=== PATIENT | male | born 1985 | race Caucasian/White ===

== ENCOUNTER 2019-04-07 00:06 | Emergency (ER) | payer MEDICAID, SELFPAY ==
[2019-04-07 00:07] VITALS: BP 113/54; PULSE 71; RESP 16; TEMP 36.7; O2SAT 99; BMI 37.4
--- NOTE | 2019-04-07 00:24 | RAD_ITS ---
STUDY: X-RAY CHEST REASON FOR EXAM: Male, 33 years old. Chest pain. TECHNIQUE: PA and lateral chest. COMPARISON: None. FINDINGS: Minimal right middle lobe airspace opacity best visualized on the lateral view. No effusions. Normal size heart. Normal mediastinum and clarissa. Normal visualized pulmonary arteries. Normal visualized aortic arch and descending thoracic aorta. Normal visualized thoracic spine. Normal visualized ribs, clavicles, and shoulders. There is no demonstrated abnormality of the visualized soft tissue structures of the upper abdomen. RAD/Chest PA and Lateral IMPRESSION: Right middle lobe subsegmental atelectasis or less likely pneumonia. Electronically Signed: Anival Garcia MD at 0:55 EDT , Service support ,
--- NOTE | 2019-04-07 00:24 | ED.VIS.CHEST ---
History of Present Illness Chief Complaint: Chest Pain Informant: Patient Onset: Days - 3 Activity at onset: Unknown - Gradual onset, worse throughout the day today Timing: Continuous Quality: Sharp Location: Left Chest Current Severity: Moderate Maximum Severity: Moderate Worsened By: Exertion, Breathing, - - Worse with lying down. Not Worsened By: Movement of Arm, Movement of Torso, Eating, Palpation Relieved By: - - Better with leaning forward while sitting. Tylenol helped a little, has tried nothing else Associated Symptoms: Dyspnea - At one point because the pain was worse, but for the most part no dyspnea. Negative for: Nausea, Vomiting, Diaphoresis, Cough - And no hemoptysis, Fever, Lightheadedness, Palpitations Narrative: No recent illnesses. No recent travel. No near syncopal symptoms or other systemic symptoms. Pain in his left chest radiates into the same area in his upper left back when he takes a deep breath. Prior Similar Symptoms: No Recent Illness/Hospitalization: No CVD Risk Factors: Negative for: Hypertension, Diabetes, Hypercholesterolemia, Family History 1' </=55, Smoking PE Risk Factors: Negative for: Recent Travel/Surgery, Recenet Immobilization, Prior DVT or PE, Cancer, OCP + Smoking + >/=35 Past Medical History - Allergies and Home Meds Allergies/Adverse Reactions: Allergies No Known Allergies Allergy (Verified 04/07/19 00:37) Primary Care Physician: Care Physician,No Primary [Primary Care Provider] - Past Medical History: None Surgical History: no surgical history Lives: Spouse/ Significant Other Smoking Status: Never smoker Drugs: None Review of Systems General: Denies: Chills, Fever, Sweats Eyes: Denies: Visual changes - bilaterally, Diplopia ENT: Denies: Rhinorrhea, Sore throat Cardiovascular: Reports: Chest pain. Denies: Palpitations Respiratory: Denies: Dyspnea, Cough, Dyspnea on exertion Gastrointestinal: Denies: Abdominal pain, Nausea, Vomiting, Diarrhea, Melena, Hematochezia Genitourinary: Denies: Dysuria, Hematuria, Frequency Musculoskeletal: Denies: Back pain, Swelling, Extremity Pain Skin: Denies: Rash, Wounds Neurological: Denies: Headache, Weakness, Numbness Physical Exam Vital Signs/Narrative: Vital Signs Temp Pulse Resp BP Pulse Ox 04/07/19 00:07 98.0 F 71 16 113/54 L 99 Inital Vital Signs reviewed: Yes General: Well nourished, Well developed, No Acute Distress Head: Normocephalic, Atraumatic Eyes: Perrl, EOMI ENT: Moist mucous membranes, No rhinorrhea Neck: Supple, Nontender Cardiovascular: Regular rate, Regular rhythm, No murmurs. Negative for: Tachycardia Respiratory: No distress, CTA bilaterally, Chest nontender Abdomen: Soft, Nontender, Nondistended, Normal bowel sounds Back: Nontender, Normal Inspection Extremities: Nontender, No edema. Negative for: Calf Tenderness Skin: Normal color, No rash, No Trauma Neurological: Alert, Oriented x3, Cranial nerves II-XII grossly intact, Normal Strength, Normal Sensation Psychological: Normal affect, Normal Mood Diagnostic/Tx/Re-eval Impressions Chest X-Ray 04/07/19 00:24 IMPRESSION: Right middle lobe subsegmental atelectasis or less likely pneumonia. Electronically Signed: Anival Garcia MD at 0:55 EDT , Service support , 04/07/19 00:24 Chest PA and Lateral [RAD] Stat Laboratory Results 04/07/19 04/07/19 04/07/19 00:32 00:32 00:32 WBC 8.3 RBC 4.99 Hgb 14.9 Hct 42.4 MCV 85.0 MCH 29.9 MCHC 35.1 RDW 12.8 RDW Differential 39.0 Plt Count 280 MPV 10.7 Immature Gran % (Auto) 0.100 Neut % (Auto) 58.2 Lymph % (Auto) 32.1 Tensas % (Auto) 7.6 Eos % (Auto) 1.8 Baso % (Auto) 0.2 Absolute Neuts (auto) 4.9 Absolute Lymphs (auto) 2.67 Total Counted Not Reportable D-Dimer Quant (PE/DVT) < 0.27 L Sodium 139 Potassium 3.0 L Chloride 103 Carbon Dioxide 30.0 Anion Gap 6 BUN 16 Creatinine 1.05 Estim Creat Clear Calc 88.67 Est GFR (MDRD) Af Amer 106 Est GFR (MDRD) Non-Af 87 BUN/Creatinine Ratio 15.2 Glucose 111 H Calcium 8.6 Troponin I < 0.015 - Rhythm Strip Rhythm Strip: Sinus Rhythm Rate: 80 Ectopy: None - EKG Initial EKG Interpretation: Sinus Rhythm, No Acute Injury Pattern, - - nml axis. no ST elevation or depression. no RI depression. Prior: No Prior - Medical Decision Making JAZMIN risk score is 0. His work-up is negative including a normal EKG, negative troponin, normal blood counts, and a negative d-dimer. With regards to the above x-ray interpretation, there is mild right middle lobe abnormality is likely atelectasis since he has symptoms localized to the left side of his chest and upper back only, and has no symptoms of pneumonia. After Toradol, his symptoms have improved and he was able to rest, his states this is the first time in 3 days he has actually been able to sleep. We woke him up and he is feeling okay. Since his EKG shows no findings of pericarditis, which is at the top of the differential given his symptoms, I suspect this is more likely to be pleurisy. I will prescribe him Naprosyn and refer him for primary care since he has no PCP. wants him to see Dr. Young which is his doctor, which I think is fine. All questions answered at the bedside. ED Disposition - Plan for ED Patient: Disposition: Home or Assisted Living Diagnosis: Pleurisy Instructions: ED Chest Pain Pleurisy Prescriptions: Naproxen [Naprosyn] 500 mg PO BID PRN #20 tablet Referrals: Valeriano Young MD [NON-STAFF] - 3-5 Days if not improving
[2019-04-07] MEDS: Ketorolac 30 MG/ML Syringe IV (00:33)
[2019-04-07 00:41] LABS: Absolute Lymphocyte Count 2.67 X10^3/ul (0.83-4.51); Absolute Neutrophil Count 4.9 X10^3/uL (2.0-7.7); Basophil# 0.02 X10^3/uL; Basophil% 0.2 % (0-1); Eosinophil# 0.15 X10^3/uL; Eosinophils% 1.8 % (0-5); Hematocrit 42.4 % (40-54); Hemoglobin 14.9 g/dl (13.0-16.5); Lymphocyte # 2.67 X10^3/ul (4.0); Lymphocyte % 32.1 % (19-41); Mean Corp Hgb Conc 35.1 g/gl (32-36); Mean Corpuscular Hgb 29.9 pg (27.0-32.0); Mean Platelet Vol. 10.7 fl (6.2-12.0); Monocyte# 0.63 X10^3/uL; Monocyte% 7.6 % (0-10); Neutrophil # 4.85 X10^3/uL (2.7-7.7); Neutrophil % 58.2 % (47-70); Platelet Count 280 K/mm3 (150-450); RBC Distribution Width CV 12.8 % (11.6-14.6); Red Blood Count 4.99 M/mm3 (4.6-6.2); White Blood Count 8.3 K/mm3 (4.4-11.0)
[2019-04-07 00:45] LABS: POSITIVE COUNT NO; POSITIVE DIFFERENTIAL NO; POSITIVE MORPHOLOGY NO
[2019-04-07 00:55] LABS: D-Dimer Quantitative (DVT/PE) < 0.27 FEU/ug/m (0.27-0.49)
[2019-04-07 01:00] LABS: Anion Gap 6 (5-15); BUN 16 mg/dL (7-18); BUN/Creat Ratio 15.2 RATIO (10-20); Calcium,Total 8.6 mg/dL (8.5-10.1); Chloride 103 mmol/L (98-107); Creatinine, Serum 1.05 mg/dL (0.70-1.30); EST Glomerular Filtration Rate 87 mL/min (>60); Est Glom Filt Rate - Afr Amer 106 mL/min (>60); Estimated Creatinine Clearance 88.67 ml/min; Glucose 111 mg/dL (74-106); Sodium Level 139 mmol/L (136-145)
--- NOTE | 2019-04-07 01:34 | EKG12_ITS ---
Test Reason : CP Blood Pressure : / mmHG Vent. Rate : 079 BPM Atrial Rate : 079 BPM P-R Int : 162 ms QRS Dur : 118 ms QT Int : 400 ms P-R-T Axes : 054 023 042 degrees QTc Int : 458 ms Normal sinus rhythm Non-specific intra-ventricular conduction delay Borderline ECG Confirmed by BHARGAVI JAMES ([id number]), associate editor JOSEPH ORTIZ ([id number]) on 04/15/2019 9:29:40 AM Referred By: KRISTA Confirmed By:BHARGAVI JAMES
== END 2019-04-07 01:57 | disposition home or self-care (01) ==
PROVIDERS: Emergency Provider Emergency Medicine
DX: R09.1 Pleurisy (principal)
CPT/HCPCS: 71046; 80048; 84484; 85025; 85379; 93005; 96374; 99284; A4216

== ENCOUNTER 2020-04-08 04:40 | Emergency (ER) | payer MEDICAID, SELFPAY ==
[2020-04-08 04:41] VITALS: BP 160/83; PULSE 87; RESP 16; TEMP 36.5; O2SAT 96; BMI 34.9
--- NOTE | 2020-04-08 05:02 | ED.DCSUM_ITS ---
History of Present Illness Chief Complaint: Abd Pain Informant: Patient Narrative: he stated he has a bulge in his left groin that hurts. Is been there for the last 2 months. Normally he can go back and without problem. Usually does not hurt. Tonight he woke up and he had pain. He came in for further evaluation. He tried Tylenol with no relief. He stated that the hernia that he suspects he has will go back in. He has not tried to push it however. Current severity is moderate. Worsened by nothing. Relieved by nothing. Denies any other medical problems. Past Medical History - Allergies and Home Meds Allergies/Adverse Reactions: Allergies No Known Allergies Allergy (Verified 04/08/20 04:43) Primary Care Physician: Care Physician,No Primary [Primary Care Provider] - Prior records reviewed: Yes Past Medical History: None Surgical History: no surgical history Smoking Status: Never smoker Alcohol: None Drugs: None Review of Systems General: Denies: Chills, Fever, Sweats Eyes: Denies: Visual changes - bilaterally, Diplopia ENT: Denies: Rhinorrhea, Sore throat Cardiovascular: Denies: Chest pain, Palpitations Respiratory: Denies: Dyspnea, Cough, Dyspnea on exertion Gastrointestinal: Reports: - - Left groin pain secondary to hernia. Denies: Abd ominal pain, Nausea, Vomiting, Diarrhea, Melena, Hematochezia Genitourinary: Denies: Dysuria, Hematuria, Frequency Musculoskeletal: Denies: Back pain, Extremity Pain Skin: Denies: Rash, Wounds Neurological: Denies: Headache, Weakness, Numbness Physical Exam Vital Signs/Narrative: Vital Signs Temp Pulse Resp BP Pulse Ox 04/08/20 04:41 97.7 F L 87 16 160/83 H 96 General: Well nourished, Well developed, No Acute Distress Head: Normocephalic, Atraumatic Eyes: Perrl, EOMI ENT: Moist mucous membranes, No rhinorrhea Neck: Supple, Nontender Cardiovascular: Regular rate, Regular rhythm, No murmurs Respiratory: No distress, CTA bilaterally, Chest nontender Abdomen: Soft, Nontender, Nondistended, Normal bowel sounds : - - he has a left-sided inguinal hernia with a incarcerated hernia bulge there is no redness or skin discoloration Back: Nontender, Normal Inspection Extremities: Nontender, No edema Skin: Normal color, No rash Neurological: Alert, Oriented x3, Cranial nerves II-XII grossly intact, Normal Strength, Normal Sensation Psychological: Normal affect, Normal Mood Diagnostic/Tx/Re-eval - Medical Decision Making Patient given a dose of Dilaudid for pain. Ice applied. Manual traction applied to try to reduce the hernia. The hernia reduced easily. Patient felt much better. He will follow-up with surgery as an outpatient. Taught how to reduce his hernia if it pops out. Will return if he cannot reduce it ED Disposition - Plan for ED Patient: Disposition: Home or Assisted Living Diagnosis: Incarcerated inguinal hernia Instructions: ED Hernia Inguinal Referrals: Imer More MD [STAFF PHYSICIAN] -
[2020-04-08] MEDS: HYDROmorphone 1 MG/ML Syringe IV (05:06)
[2020-04-08 05:28] VITALS: BP 150/80; PULSE 78; RESP 16; O2SAT 99
--- OUTSIDE RECORDS SUMMARY | 2020-08-29 16:22 | XMS RPT_ITS | CCD ---
:1985 External Reference #:[id number] Author Organization [facility] Care Team Providers Name Role Phone Unavailable Unavailable Unavailable Results Result Name Value Range Unit Interpretation Flag Date Location xr chest 2v frontal/lat on 2019-05-29 XR CHEST 2V * * *Final Report* * * Normal 05-29 [facility] FRONTAL/LAT DATE OF EXAM: May 29 2019 10:40AM [place] WOX [id number] - XR CHEST 2V FRONTAL/LAT / ([id number]) PROCEDURE REASON: Night sweats * * * * Physician Interpretation * * * * EXAMINATION: CHEST RADIOGRAPH (2 VIEW FRONTAL and LATERAL) CLINICAL HISTORY: Night sweats MQ: XC2_5 Comparison: None RESULT: Heart normal size. Bony structures unremarkable. Poor inspir ation producing crowded lung markings.. IMPRESSION: No acute radiographic abnormality. Dot Net Architect: MICHAEL Transcribe Date/Time: May 30 2019 9:52P Dictated by : SHANICE THOMPSON DO This examination was interpreted and the report reviewed and electronically signed by: SHANICE THOMPSON DO on May 30 2019 9:53PM EST [id number] tsh on 2019-05-29 TSH Qn 1.350 0.400-5.500 uU/mL Normal 05-29-2019 [facility] ([id number]) Comment: Performed By: #### CMP, HIV1 2C, CBCDIF, LIPNF, TSH, HBA1C #### [facility] [address] [place], [place] [address] progress on 2019-05 PROGRESS HNO ID: [id number] Normal 05-29-2019 [facility] Author: Izabel Junior (Rt) Tai Meyer [place] ([id number]) Service: ? Author Type: Customer Technical Services Manager Type: Progress Notes Filed: 05/29/2019 10:40 AM Note Text: Radiology Service Progress Note PATIENT NAME: Luis E Thompson DATE OF SERVICE: May 29, 2019 TIME: 10:34 AM PATIENT IDENTITY VERIFICATION COMPLETED USING TWO (2) METHOD S: Patient confirmed name verbally and Date of . PATIENT GENDER DATA: Male PATIENT RELEVANT IMPLANT DATA REVIEWED: Not Applicable RADIOLOGY DEPARTMENT: General X-ray: Exam(s) Completed: Ches t X-Ray PERIPHERAL IV DATA: Not applicable SIGNED BY: RT Sonia May 29, 2019 10:34 AM PROGRESS HNO ID: [id number] Normal 05-29-2019 [facility] Author: Margie Gutierrez () Hector Nicolas ([id number]) Service: ? Author Type: Physician Type: Progress Notes Filed: 05/29/2019 10:14 AM Note Text: Chief Complaint Patient presents with: Physical HPI Luis E Thompson is a 33 year old male who presents here today for establish care visit and annual physical. Has not had PCP since he was a child. Accompanied today by and son. Complaining today of rash on buttocks bilaterally for about 2 years. Patient denies burning, itching, pain, drainage, fever, chil ls. Not treating with anything OTC for symptoms. Has similar rash on left hand as well. Seen last month at [facility] ED for chest pain. Diagnosed with ple urisy. Followed up with Paola Duckworth and switched from naproxen to p rednisone. Symptoms now resolved. Reviewed recent labs. Hypokalemic at 3 without treatment and hyperglycemia 111. Weight in obesity range. Admits to drinking [address] Cyn wahl every 3-4 days. Avoids fast food. Eats mostly home cooked meals wi th lean proteins sometimes. Does not eat vegetables. Does not exerci se regularly. Last tetanus booster was 3 years ago at [facility] when he caug ht left hand with chainsaw. Past medical history, appointments, medications, allergies r cholowed. Previous Medical History PAST MEDICAL HISTORY Diagnosis Date - Obesity (BMI 30.0-34.9) - Pleurisy Previous Surgical History PAST SURGICAL HISTORY Procedure Laterality Date - APPENDECTOMY 2007 [facility] Family History No family history on file. Patient Allergies ALLERGIES No Known Allergies Current Medications Current Outpatient Medications on File Prior to Visit: naproxen (NAPROSYN) 500 mg tablet Take 500 mg by mouth twice daily with meals. No current facility-administered medications on file prior t o visit. Social History Social History Socioeconomic History Marital status: Spouse name: Not on file Number of children: Not on file Years of education: Not on file Highest education level: Not on file Social Needs Financial resource strain: Not on file Food insecurity - worry: Not on file Food insecurity - inability: Not on file Transportation needs - medical: Not on file Transportation needs - non-medical: Not on file Occupational History Occupation: [employer] Employer: [employer] Tobacco Use Smoking status: Never Smoker Smokeless tobacco: Never Used Substance and Sexual Activity Alcohol use: No Drug use: No Sexual activity: Not on file Other Topics Concerns: Not on file Social History Narrative Lives at home with and 4 children Review of Symptoms REVIEW OF SYSTEMS GENERAL: No weight loss, malaise or fevers. Admits to night sweats for years. Has not checked temperature with sweats. HEENT: Negative for frequent or significant headaches, No ch anges in hearing or vision, no nose bleeds or other nasal problems NECK: Negative for lumps, goiter, pain and significant neck swelling RESPIRATORY: Cough; dry. Denies SOB or wheezing, chest conge stion. CARDIOVASCULAR: See HPI GI: No nausea, vomiting, or diarrhea : No history of dysuria, frequency or incontinence, No dif ficulty urinating, nocturia > 1 time per night or hematuria MUSCULOSKELETAL: Negative for joint pain or swelling, back p ain or muscle pain SKIN: See HPI PSYCH: Negative for sleep disturbance, mood disorder and rec ent psychosocial stressors EXAM: BP 100/60 (BP Site: Left Arm, BP Position: Sitting, BP Cuff Size: Large Adult) Pulse 64 Resp 18 Ht 171.5 cm (5' 7.5) Wt 98. 9 kg (218 lb 1.9 oz) BMI 33.66 kg/m? General Appearance: Well appearing, alert, in no acute distr ess, well-hydrated, well nourished.. Skin: eczematous rash on buttocks bilaterally with flaking m aculopapular rash. No perianal rash. . Head: Normocephalic, no masses, lesions, tenderness or abnor malities. Eyes: Anicteric sclera. Pupils are equally round and reactiv e to light. Extraocular movements are intact. . Ears: External ears normal, canals clear. Oropharynx: Lips, mucosa, and tongue normal, teeth and gums normal, oropharynx normal. Neck: Supple, no adenopathy; thyroid symmetric, normal size, no bruits. Lungs: lungs clear to auscultation. No wheezing, rhonchi, ra les. Heart: RRR without murmur, gallop, or rubs. No ectopy. Abdomen: Normal abdominal exam, Abdomen soft, non-tender. Fadi wel sounds normal. No masses, organomegaly. Extremities: No deformities, edema, skin discoloration, club arleth or cyanosis. Good capillary refill. . Health Maintenance List DTAP,TDAP,TD(1 - Tdap) due on 2006 INFLUENZA(1) due on 07/18/2019 ASSESSMENT/PLAN: 1. Annual physical exam - ICD9: V70.0, ICD10: Z00.00 (primar y diagnosis) - Recommended regular aerobic exercise. - Discussed need and benefit for weight loss. BMI 33.66 kg/( m2) - Check fasting lipid panel - Follow up for annual exam in one year. - LIPID PANEL, NONFASTING 2. Night sweats - ICD9: 780.8, ICD10: R61 Present for years. Room air conditioned. Happens when he sle eps in other locations as well. Discussed initiating workup with labs and CXR as ordered. If negative, consider blood cultures vs referral fo r further evaluation. - CBC + DIFF - TSH BLD - HIV 1 2 COMBO(AG/AB),WITH REFLEX TO DIFFERENTIATION - XR CHEST 2V FRONTAL/LAT 3. Hypokalemia - ICD9: 276.8, ICD10: E87.6 Recheck CMP. Will supplement if low. - COMP METABOLIC PANEL 4. Hyperglycemia - ICD9: 790.29, ICD10: R73.9 Screen for DM. Given booklet on meal planning for diabetes t o help with weight loss. Stop drinking pop. Increase vegetable content i n diet. - COMP METABOLIC PANEL - HGB A1C 5. Eczema, unspecified type - ICD9: 692.9, ICD10: L30.9 - Topical steriod tx with Rx for steriod cream/ointment- see orders - discussed skin care of rash - follow up if symptoms persist or worsen. - TRIAMCINOLONE ACETONIDE 0.1 % TOPICAL CREAM 6. Obesity, Class I, BMI 30-34.9 - ICD9: 278.00, ICD10: E66. 9 Improved diet and exercise. Margie Young MD lipid panel, nonfast on 2019-05-29 Cholesterol [Mass/Vol] 147 <200 mg/dL Normal 019 [facility] ([id number]) Comment: Result Comment: <200 mg/dL, Desirable 200-239 mg/dL, Borderline hi gh >239 mg/dL, High Performed By: #### CMP, HIV1 2C, CBCDIF, LIPNF, TSH, HBA1C #### [facility] [address] [place], [place] [address] Cholesterol in 1.74 <2.54 mg/dL Normal 05-29-2019 [facility] LDL/Cholesterol in HDL [Mass [place] ([id number]) ratio] Comment: Result Comment: Reference: 1. National Cholesterol Educ ation Program ATP III Guideline At-A-Glance Quick Desk Reference: National Heart, Lung, and Blood Holliday. National Institutes of Health. 2001: NIH Publication No. 01-3305. 2. An International Atherosc lerosis Society position paper: global recommendations for the management of dyslipidemia: executive summary, Atherosclerosis. 2014: 232(2):410-413. Performed By: #### CMP, HIV1 2C, CBCDIF, LIPNF, TSH, HBA1C #### [facility] [address] [place], [place] [address] Cholesterol.total/Cholesterol in 3.42 <5.10 mg/dL Normal 05-29-2019 [place] HDL [Mass ratio] Cli josephine [place] ([id number]) Comment: Performed By: #### CMP, HIV1 2C, CBCDIF, LIPNF, TSH, HBA1C #### [facility] [address] [place], [place] [address] HDL Cholesterol, NF 43 >39 mg/dL Normal 05-29-2019 [facility] ([id number]) Comment: Result Comment: 40-59 mg/dL, Acceptable >59 mg/dL, High: Negative ri sk factor for coronary heart disease <40 mg/dL, Low: Positive ris k factor for coronary heart disease Performed By: #### CMP, HIV1 2C, CBCDIF, LIPNF, TSH, HBA1C #### [facility] [address] [place] [address] LDL Cholesterol, NF 75 <100 mg/dL Normal 05-29-2019 [facility] ([id number]) Comment: Result Comment: <100 mg/dL, Optimal 100-129 mg/dL, Near optimal/ above optimal 130-159 mg/dL, Borderline hi gh 160-189 mg/dL, High >189 mg/dL, Very high Secondary prevention optimal LDL Cholesterol levels are recommended to be < 70 mg/dL Performed By: #### CMP, HIV1 2C, CBCDIF, LIPNF, TSH, HBA1C #### [facility] [address] [place] [address] Non HDL Chol, NF 104 <130 mg/dL Normal 05-29-2019 [facility] ([id number]) Comment: Result Comment: <130 mg/dL, Optimal 130-159 mg/dL, Near optimal/ above optimal 160-189 mg/dL, Borderline hi gh 190-219 mg/dL, High >219 mg/dL, Very high Secondary prevention optimal non HDL Cholesterol levels are recommended to be < 100 mg/dL Performed By: #### CMP, HIV1 2C, CBCDIF, LIPNF, TSH, HBA1C #### [facility] [address] [place] [address] Triglycerides, NF 146 <150 mg/dL Normal 05-29-2019 [facility] ([id number]) Comment: Result Comment: <150 mg/dL, Normal 150-199 mg/dL, Borderline hi gh 200-499 mg/dL, High >499 mg/dL, Very high Performed By: #### CMP, HIV1 2C, CBCDIF, LIPNF, TSH, HBA1C #### [facility] [address] [place] [address] VLDL Cholesterol, NF 29 <30 mg/dL Normal 9 [facility] ([id number]) Comment: Performed By: #### CMP, HIV1 2C, CBCDIF, LIPNF, TSH, HBA1C #### [facility] [address] [place] [address] [id number] ag +[id number] ab on 2019-05-29 HIV 12 Ag/Ab Non Reactive Non Reactive Normal 05-29-2019 [facility] ([id number]) Comment: Performed By: #### CMP, HIV1 2C, CBCDIF, LIPNF, TSH, HBA1C #### [facility] [place] [address] HIV Interpretation Negative Normal 05-29-2019 [facility] ([id number]) Comment: Result Comment: No evidence of HIV-1 or HIV-2 infection. Should recent infection be suspected, repeat testing may be considered 2-3 weeks after this draw. HIV Information: [place] Rev. C ode 3701.243(E): This information has been di sclosed to you from confidential records protected from disclosure by state law. You shall make no further disclosure of this information without the specific, written, and i nformed release of the indiv idual to whom it pertains or as otherwise permitted by state law. A general authorization for the release of medical or other information is not sufficient for the purpose of the release of HIV test results or diagnoses. Performed By: #### CMP, HIV1 2C, CBCDIF, LIPNF, TSH, HBA1C #### [facility] [place] [address] HIV-1/2 Antibody Test Not Indicated Normal 05-17 [facility] ([id number]) Comment: Performed By: #### CMP, HIV1 2C, CBCDIF, LIPNF, TSH, HBA1C #### [place] [id number] [place] [id number] hemoglobin a1c on 2 HbA1c (Bld) [Mass fraction] 88 mg/dL Normal [facility] (34704) Comment: Result Comment: eAG: (Estima dipika average glucose) is a calculated value from HgbA1c and is field representatives director of the average blood glucose level in the last 2-3 month period. Performed By: #### CMP, HIV1 2C, CBCDIF, LIPNF, TSH, HBA1C ####[facility] [id number] [place], [place] [phone] HbA1c (Bld) [Mass fraction] 4.7 4.3-5.6 % Normal [facility] (86076) Comment: Result Comment: [place] Karen betes Association guidelines indicate that patients with HgbA1c in the range 5.7-6.4% are at increased risk for development of diabetes, and intervention by lifestyle modification may be beneficial. HgbA1c greater o r equal to 6.5% is considered diagnostic of diabetes. Performed By: #### CMP, HIV1 2C, CBCDIF, LIPNF, TSH, HBA1C ####[facility] [place], [place] [phone] comp metabolic panel on 2019-05-29 Albumin [Mass/Vol] 4.7 3.9-4.9 g/dL Normal 05-29-2019 [facility] ([id number]) Comment: Performed By: #### CMP, HIV1 2C, CBCDIF, LIPNF, TSH, HBA1C #### [facility] [address] [place], [place] [address] ALP [Catalytic activity/Vol] 58 38-113 U/L Normal 0 05-29-2019 [facility] ([id number]) Comment: Performed By: #### CMP, HIV1 2C, CBCDIF, LIPNF, TSH, HBA1C #### [facility] [address] [place], [place] [address] ALT [Catalytic activity/Vol] 21 10-54 U/L Normal 0 05-29-2019 [facility] ([id number]) Comment: Performed By: #### CMP, HIV1 2C, CBCDIF, LIPNF, TSH, HBA1C #### [facility] [address] [place], [place] [address] Anion gap [Moles/Vol] 9 9-18 mmol/L Normal 05-29-20 19 [facility] ([id number]) Comment: Performed By: #### CMP, HIV1 2C, CBCDIF, LIPNF, TSH, HBA1C #### [facility] [address] [place], [place] [address] AST [Catalytic activity/Vol] 32 14-40 U/L Normal 0 05-29-2019 [facility] ([id number]) Comment: Result Comment: Results may be falsely increased due to interference by hemolysis. Suggest reorder a s clinically indicated. Performed By: #### CMP, HIV1 2C, CBCDIF, LIPNF, TSH, HBA1C #### [facility] [address] [place], [place] [address] Bilirubin [Mass/Vol] 0.5 0.2-1.3 mg/dL Normal 9 [facility] ([id number]) Comment: Performed By: #### CMP, HIV1 2C, CBCDIF, LIPNF, TSH, HBA1C #### [facility] [address] [place], [place] [address] Calcium [Mass/Vol] 9.9 8.5-10.2 mg/dL Normal 05-29-2019 [facility] ([id number]) Comment: Performed By: #### CMP, HIV1 2C, CBCDIF, LIPNF, TSH, HBA1C #### [facility] [address] [place], [place] [address] Chloride [Moles/Vol] 103 97-105 mmol/L Normal 9 [facility] ([id number]) Comment: Performed By: #### CMP, HIV1 2C, CBCDIF, LIPNF, TSH, HBA1C #### [facility] [address] [place], [place] [address] CO2 [Moles/Vol] 27 22-30 mmol/L Normal 05-29-2019 [facility] ([id number]) Comment: Performed By: #### CMP, HIV1 2C, CBCDIF, LIPNF, TSH, HBA1C #### [facility] [address] [place], [place] [id number] Creatinine [Mass/Vol] 0.86 0.73-1.22 mg/dL Normal 05-29-20 19 [facility] ([id number]) Comment: Performed By: #### CMP, HIV1 2C, CBCDIF, LIPNF, TSH, HBA1C #### [facility] [address] [place] [address] eGFR- Amer. >60 Normal 05-29-2019 [facility] ([id number]) Comment: Performed By: #### CMP, HIV1 2C, CBCDIF, LIPNF, TSH, HBA1C #### [facility] [address] [place] [address] GFR/1.73 sq M predicted >60 mL/min/{1.73_m2} Normal 05-29-2019 [facility] among non-blacks [facility] ([id number]) (S/P/Bld) [Vol rate/Area] Comment: Result Comment: eGFR (Estima dipika GFR) Units of measure: mL/min/1.73 meters squared eGFR is derived from the ree xpressed MDRD Study equation using the following parameters: serum creatinine, age, gender and race. The creatinine assay has been calibrated to be traceable to IDMS. An eGFR <60 mL/min/1.73m2 fo r >3 months is consistent with chronic kidney disease. Refer to KDOQI guidelines for clinical interpretation. In patients with unstable re nal function, e.g. those with acute kidney injury, the eGFR may not accurately reflect actual GFR. Performed By: #### CMP, HIV1 2C, CBCDIF, LIPNF, TSH, HBA1C #### [facility] [address] [place] [id number] Glucose [Mass/Vol] 89 74-99 mg/dL Normal 05-29-2019 [facility] ([id number]) Comment: Result Comment: The [place] Diabetes Association (ADA) provides guidance for cutoff values for fasting glucose and random glucose. The ADA defines fasting as no caloric intake for at least 8 hours. Fas ting plasma glucose results between 100 to 125 mg/dL indicate increased risk for diabetes (prediabetes). Fasting plasma glucose resul ts greater than or equal to 126 mg/dL meet the criteria for diagnosis of diabetes. In the absence of unequivocal hyperglycemia, results should be confirmed by repeat testing. In a patient with classic s ymptoms of hyperglycemia or hyperglycemic crisis, random plasma glucose results greater than or equal to 200 mg/dL meet the criteria for diagnosis of diabetes. Reference: Standards of [facility] Care in Diabetes 2016, [place] Diabetes Association. Diabetes Care. 2016.39(Suppl 1). Performed By: #### CMP, HIV1 2C, CBCDIF, LIPNF, TSH, HBA1C #### [facility] [address] [place], [place] [address] Potassium [Moles/Vol] 4.4 3.7-5.1 mmol/L Normal 05-29-20 [facility] (90725) Comment: Performed By: #### CMP, HIV1 2C, CBCDIF, LIPNF, TSH, HBA1C #### [facility] [address] [place], [place] [address] Protein [Mass/Vol] 7.3 6.3-8.0 g/dL Normal 05-29-2019 [facility] ([id number]) Comment: Performed By: #### CMP, HIV1 2C, CBCDIF, LIPNF, TSH, HBA1C #### [facility] [address] [place], [place] [address] Sodium [Moles/Vol] 139 136-144 mmol/L Normal 05-29-2019 [facility] (31804) Comment: Performed By: #### CMP, HIV1 2C, CBCDIF, LIPNF, TSH, HBA1C #### [facility] [address] [place], [place] [address] Urea nitrogen [Mass/Vol] 13 9-24 mg/dL Normal 05-29 [facility] ([id number]) Comment: Performed By: #### CMP, HIV1 2C, CBCDIF, LIPNF, TSH, HBA1C #### [facility] [address] [place], [place] [address] cnov on 2019-05-29 CNOV Office Visit (FAMPWS) Normal 05-29-20 [facility] LUIS E THOMPSON ([id number]) 1985 M [place] Date Time Provider Department ([id number]) 05/29/19 9:20 AM MARGIE YOUNG[facility] During your visit today, we recorded the following informati on about you: Pulse Respiration Blood pressure Weight 64/minute 18/minute 100/60 98.9 kg Height 1.715 m Margie Young MD 05/29/2019 10:14 AM Signed Chief Complaint Patient presents with: Physical HPI Luis E Thompson is a 33 year old male who presents here today for establish care visit and annual physical. Has not had PCP since he wa s a child. Accompanied today by and son. Complaining today of rash on buttocks bilaterally for about 2 years. Patient denies burning, itching, pain, drainage, fever, chills. Not treating with anything OTC for symptoms. Has similar rash on left hand as well. Seen last month at [facility] ED for chest pain . Diagnosed with pleurisy. Followed up with Paola Duckworth and switched from naproxen to prednisone. S ymptoms now resolved. Reviewed recent labs. Hypokalemic at 3 without zayda atment and hyperglycemia 111. Weight in obesity range. Admits to drinking [address] Gerardo every 3-4 days. Avoids fast food. Eats mostly home cooked meals with l larisa proteins sometimes. Does not eat vegetables. Does not exercise regula rly. Last tetanus booster was 3 years ago at [facility] when he caught left hand with chainsaw. Past medical history, appointments, medications, allergies latonia harding. Previous Medical History PAST MEDICAL HISTORY Diagnosis Date - Obesity (BMI 30.0-34.9) - Pleurisy Previous Surgical History PAST SURGICAL HISTORY Procedure Laterality Date - APPENDECTOMY 2007 [facility] Family History No family history on file. Patient Allergies ALLERGIES No Known Allergies Current Medications Current Outpatient Medications on File Prior to Visit: naproxen (NAPROSYN) 500 mg tablet Take 5 00 mg by mouth twice daily with meals. No current facility-administered medications on file prior t o visit. 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 Admi ts to night sweats for years. Has not checked temperature with sweats. HEENT: Negative for frequent or significant headaches, No changes in hearing or vision, no nose bleeds or other nasal problems NECK: Negative for lumps, goiter, pain and significant neck swelling RESPIRATORY: Cough; dry. Denies SOB or wheezing, chest conge stion. CARDIOVASCULAR: See HPI GI: No nausea, vomiting, or diarrhea : No history of dysuria, frequency or incontinence, No difficulty urinating, nocturia > 1 time per night or hematuria MUSCULOSKELETAL: Negative for joint pain or swelling, back pain or muscle pain SKIN: See HPI PSYCH: Negative for sleep disturbance, mood disorder a nd recent psychosocial stressors EXAM: BP 100/60 (BP Site: Left Arm, BP Positio n: Sitting, BP Cuff Size: Large Adult) Pulse 64 Resp 18 Ht 171.5 cm (5' 7.5) Wt 98.9 kg (218 lb 1.9 oz) BMI 33.66 kg/m? General Appearance: Well mika earing, alert, in no acute distress, well-hydrated, well nourished.. Skin: eczematous rash on buttocks bilate rally with flaking maculopapular rash. No perianal rash. . Head: Normocephalic, no masses, lesions, tenderness or abnor malities. Eyes: Anicteric sclera. Pupils are equally round and reactiv e to light. Extraocular movements are intact. . Ears: External ears normal, canals clear. Oropharynx: Lips, mucosa, and tongue nor mal, teeth and gums normal, oropharynx normal. Neck: Supple, no adenopathy; thyroid symmetric, normal size, no bruits. Lungs: lungs clear to auscultation. No wheezing, rhonchi, ra les. Heart: RRR without murmur, gallop, or rubs. No ectopy. Abdomen: Normal abdominal exam, Abdomen soft, non-tender. Bowel sounds normal. No masses, organomegaly. Extremities: No deformities, edema, skin discolo ration, clubbing or cyanosis. Good capillary refill. . Health Maintenance List DTAP,TDAP,TD(1 - Tdap) due on 2006 INFLUENZA(1) due on 07/18/2019 ASSESSMENT/PLAN: 1. Annual physical exam - ICD9: V70.0, ICD10: Z00.00 (primar y diagnosis) - Recommended regular aerobic exercise. - Discussed need and benefit for weight loss. BMI 33.66 kg/( m2) - Check fasting lipid panel - Follow up for annual exam in one year. - LIPID PANEL, NONFASTING 2. Night sweats - ICD9: 780.8, ICD10: R61 Present for years. Room air conditioned. Happens when he sle eps in other locations as well. Discussed initiating workup with labs and CXR as ordered. If negative, consider blood cultures vs referral for further ev aluation. - CBC + DIFF - TSH BLD - HIV 1 2 COMBO(AG/AB),WITH REFLEX TO DIFFERENTIATION - XR CHEST 2V FRONTAL/LAT 3. Hypokalemia - ICD9: 276.8, ICD10: E87.6 Recheck CMP. Will supplement if low. - COMP METABOLIC PANEL 4. Hyperglycemia - ICD9: 790.29, ICD10: R73.9 Screen for DM. Given booklet on meal jacob nning for diabetes to help with weight loss. Stop drinking pop. Increase vegetable content in diet. - COMP METABOLIC PANEL - HGB A1C 5. Eczema, unspecified type - ICD9: 692.9, ICD10: L30.9 - Topical steriod tx with Rx for steriod cream/ointment- see orders - discussed skin care of rash - follow up if symptoms persist or worsen. - TRIAMCINOLONE ACETONIDE 0.1 % TOPICAL CREAM 6. Obesity, Class I, BMI 30-34.9 - ICD9: 278.00, ICD10: E66. 9 Improved diet and exercise. Margie Young MD Referring Provider: SELF [[id number]] Allergies As of Date: 05/29/2019 (No Known Allergies) Date Reviewed: 05/29/2019 Reviewed by: Margie Gutierrez () Hector - Fully Assessed Reason for Visit: Physical [83] Primary Visit Diagnosis:Annual physical exam [Z00.00] Other Visit Diagnoses:Night sweats [R61] Hypokalemia [E87.6] Hyperglycemia [R73.9] Eczema, unspecified type [L30.9] Obesity, Class I, BMI 30-34.9 [E66.9] Pleurisy [R09.1] Obesity (BMI 30.0-34.9) [E66.9] Order(s):COMP METABOLIC PANEL [SQCMP] Order #: [id number] FU TURE triamcinolone acetonide (KENALOG) 0.1 % creamApply 1 applica tion to affected area twice daily. Apply sparingly to area for rash/itching.Disp: 1 TubeRfl: 1 HGB A1C [GLIYS7U] Order #: [id number] FUTURE CBC + DIFF [SQCBCDIF] Order #: [id number] FUTURE TSH BLD [SQTSH] Order #: [id number] FUTURE HIV 1 2 COMBO(AG/AB),WITH REFLEX TO DIFFERENTIATION [SQHIV12 ] Order #: [id number] FUTURE XR CHEST 2V FRONTAL/LAT [[id number]] Order #: [id number] FUTURE LIPID PANEL, NONFASTING [SQLIPNF] Order #: [id number] FUTURE Prescriptions as of 05/29/2019 Sig: TRIAMCINOLONE ACETONIDE 0.1 %* Apply 1 application to affect * Problem List As Of Date 05/29/2019 Noted Resolved Contact with chainsaw as cause of accidental in*INVALID FOR* Laceration of left hand [S61.412A] INVALID FOR* Eczema [L30.9] Night sweats [R61] Pleurisy [R09.1] 05/29/2019 Obesity (BMI 30.0-34.9) [E66.9] Prescriptions ordered this encounter Disp Refills Start End TRIAMCINOLONE ACETONIDE 0.1 % TOPICA* 1 Tu* 1 05/29/2019 Route: TOPICAL Sig: Apply 1 application to affected area twice daily. Apply sparingly to area for rash/itching. Medications Discontinued During This Encounter naproxen (NAPROSYN) 500 mg tablet 05/29/2019 Class: Historical Med Route: ORAL Sig: Take 500 mg by mouth twice daily with meals. Disc: Reason for discontinue is not on file. Disposition: Return if symptoms worsen or fail to improve. Follow-up and Disposition History Recorded Encounter Status:Closed by MARGIE YOUNG MD on 9 cbc and differential on 2019-05-29 Abs Baso 0.04 <0.11 k/uL Normal 05-29-2019 [facility] ([id number]) Comment: Performed By: #### CMP, HIV1 2C, CBCDIF, LIPNF, TSH, HBA1C #### [facility] [address] [address] Abs Tama 0.52 <0.87 k/uL Normal 05-29-2019 [facility] ([id number]) Comment: Performed By: #### CMP, HIV1 2C, CBCDIF, LIPNF, TSH, HBA1C #### [facility] [address] [place] [address] Abs Neut 4.24 1.45-7.50 k/uL Normal 05-29-2019 [facility] ([id number]) Comment: Performed By: #### CMP, HIV1 2C, CBCDIF, LIPNF, TSH, HBA1C #### [facility] [address] [address] Absolute nRBC <0.01 <0.01 Normal 05-29-2019 [facility] ([id number]) Comment: Performed By: #### CMP, HIV1 2C, CBCDIF, LIPNF, TSH, HBA1C #### [facility] [address] [place] [address] Basophils/100 WBC (Bld) 0.6 % Normal 2018 [facility] ([id number]) Comment: Performed By: #### CMP, HIV1 2C, CBCDIF, LIPNF, TSH, HBA1C #### [facility] [address] [address] DTYPE Auto Diff Normal 05-29-2019 [facility] ([id number]) Comment: Performed By: #### CMP, HIV1 2C, CBCDIF, LIPNF, TSH, HBA1C #### [facility] [address] [address] Eosinophils (Bld) [#/Vol] 0.07 <0.46 k/uL Normal 05-17 [facility] ([id number]) Comment: Performed By: #### CMP, HIV1 2C, CBCDIF, LIPNF, TSH, HBA1C #### [facility] [address] [address] Eosinophils/100 WBC (Bld) 1.1 % Normal 05-17 [facility] ([id number]) Comment: Performed By: #### CMP, HIV1 2C, CBCDIF, LIPNF, TSH, HBA1C #### [facility] [address] [address] Erythrocyte distribution 12.5 11.5-15.0 % Normal 05-29 [facility] width (RBC) [Ratio] [facility] ([id number]) Comment: Performed By: #### CMP, HIV1 2C, CBCDIF, LIPNF, TSH, HBA1C #### [facility] [address] [place], [place] [address] Hematocrit (Bld) [Volume 48.1 39.0-51.0 % Normal 05-29 [facility] fraction] [facility] ([id number]) Comment: Performed By: #### CMP, HIV1 2C, CBCDIF, LIPNF, TSH, HBA1C #### [facility] [address] [place], [place] [address] Hemoglobin (Bld) 15.7 13.0-17.0 g/dL Normal 05-29-2019 [facility] [Mass/Vol] [place] ([id number]) Comment: Performed By: #### CMP, HIV1 2C, CBCDIF, LIPNF, TSH, HBA1C #### [facility] [address] [place], [place] [address] Lymphocytes (Bld) [#/Vol] 1.69 1.00-4.00 k/uL Normal 05-17 [facility] ([id number]) Comment: Performed By: #### CMP, HIV1 2C, CBCDIF, LIPNF, TSH, HBA1C #### [facility] [address] [address] Lymphocytes/100 WBC (Bld) 25.8 % Normal 05-17 [facility] ([id number]) Comment: Performed By: #### CMP, HIV1 2C, CBCDIF, LIPNF, TSH, HBA1C #### [address] [address] MCH (RBC) [Entitic mass] 29.1 26.0-34.0 pG Normal 05-29 [facility] ([id number]) Comment: Performed By: #### CMP, HIV1 2C, CBCDIF, LIPNF, TSH, HBA1C #### [facility] [address] [place], [place] [address] MCHC (RBC) [Mass/Vol] 32.6 30.5-36.0 g/dL Normal 05-29-20 [facility] ([id number]) Comment: Performed By: #### CMP, HIV1 2C, CBCDIF, LIPNF, TSH, HBA1C #### [facility] [address] [place] [address] MCV (RBC) [Entitic vol] 89.1 80.0-100.0 fL Normal 05-29 [facility] ([id number]) Comment: Performed By: #### CMP, HIV1 2C, CBCDIF, LIPNF, TSH, HBA1C #### [facility] [address] [place], [place] [address] Monocytes/100 WBC (Bld) 7.9 % Normal 2018 [facility] ([id number]) Comment: Performed By: #### CMP, HIV1 2C, CBCDIF, LIPNF, TSH, HBA1C #### [facility] [address] [place], [place] [address] Neutrophils/100 WBC (Bld) 64.6 % Normal 05-17 [facility] ([id number]) Comment: Performed By: #### CMP, HIV1 2C, CBCDIF, LIPNF, TSH, HBA1C #### [facility] [address] [place], [place] [address] NRBCs 0.0 0 /100 WBC Normal 05-29-2019 [facility] ([id number]) Comment: Performed By: #### CMP, HIV1 2C, CBCDIF, LIPNF, TSH, HBA1C #### [facility] [address] [place], [place] [id number] Platelet mean volume 11.5 9.0-12.7 fL Normal 9 [facility] (Bld) [Entitic vol] [facility] ([id number]) Comment: Performed By: #### CMP, HIV1 2C, CBCDIF, LIPNF, TSH, HBA1C #### [facility] [address] [place], [place] [address] Platelets (Bld) [#/Vol] 288 150-400 k/uL Normal 2018 [facility] ([id number]) Comment: Performed By: #### CMP, HIV1 2C, CBCDIF, LIPNF, TSH, HBA1C #### [facility] [address] [place], [place] [address] RBC (Bld) [#/Vol] 5.40 4.20-6.00 m/uL Normal 05-29-2019 [facility] ([id number]) Comment: Performed By: #### CMP, HIV1 2C, CBCDIF, LIPNF, TSH, HBA1C #### [facility] [address] [place], [place] [address] WBC (Bld) [#/Vol] 6.56 3.70-11.00 k/uL Normal 05-29-2019 [facility] ([id number]) Comment: Performed By: #### CMP, HIV1 2C, CBCDIF, LIPNF, TSH, HBA1C #### [facility] [address] [place], [place] [id number] progress on 2019-03 PROGRESS HNO ID: [id number] Normal 04-07-2019 [facility] Author: Paola ([employer]) Lawrence Nicolas ([id number]) Service: ? Author Type: Nurse Practitioner Type: Progress Notes Filed: 04/07/2019 2:09 PM Note Text: Chief Complaint Patient presents with: Hospital F/U: Felisha [facility] Luis E Thompson is a 33 year old male who presents here today for ER Follow Up. Patient presents office today for emergency room follow-up. Went to [facility] last night with complaints of bj st pain. Duration was 3 days. Described as a gradual onset that worse betsey throughout the day. He complained of sharp, left-sided. Wors ened by exertion, breathing, lying down. Improved with leaning forwa rd while sitting. Tylenol marginally helped. No shortness of breath o ther than with large pain response. No nausea, vomiting, diaphoresis, cough, hemoptysis, fever, lightheadedness, palpitations. D-dimer wa s negative. CBC was normal, BMP was normal. Troponin was negative. EKG w as normal. Chest x-ray showed right middle lobe segmental atelectasis v ersus less likely pneumonia. Patient responded well to Toradol. Was karen gnosed with pleurisy. Discharge with naproxen 500 mg twice a day as need ed. At this time, he has only taken one naproxen since his discharge, wh ich did marginally improve pain. His pain is still in the left side but is more generalized now. Rating 10/10. Blood pressure is normal, hea rt rate is 98. He states that he is in pain from just walking down the hallway. No syncope. No fevers. Patient has not been ill lately, no recent travel, no recent surgeries. Nonsmoker. Past medical history, appointments, medications, allergies r cholowed. Previous Medical History PAST MEDICAL HISTORY Diagnosis Date - NEGATIVE MEDICAL HISTORY Previous Surgical History PAST SURGICAL HISTORY Procedure Laterality Date - APPENDECTOMY Family History No family history on file. Patient Allergies ALLERGIES No Known Allergies Current Medications No current outpatient medications on file prior to visit. No current facility-administered medications on file prior t o visit. Social History Social History Socioeconomic History Marital status: Spouse name: Not on file Number of children: Not on file Years of education: Not on file Highest education level: Not on file Social Needs Financial resource strain: Not on file Food insecurity - worry: Not on file Food insecurity - inability: Not on file Transportation needs - medical: Not on file Transportation needs - non-medical: Not on file Occupational History Not on file Tobacco Use Smoking status: Never Smoker Substance and Sexual Activity Alcohol use: No Drug use: No Sexual activity: Not on file Other Topics Concerns: Not on file Social History Narrative Not on file REVIEW OF SYSTEMS: as above ? Reviewed relevant PMHx, PSHx, Social Hx, current medications and allergies. EXAM: BP 125/98 Pulse 98 Resp 20 Wt 100.7 kg (222 lb) SpO2 97% BMI 33.75 kg/m? General Appearance: Well appearing, alert, in no acute distr ess, well-hydrated, well nourished.. Lungs: lungs clear to auscultation. No wheezing, rhonchi, ra les. Patient stating replication of pain with deep inspiration on exam. Heart: RRR without murmur, gallop, or rubs. No ectopy. Extremities: No deformities, edema. Musculoskeletal: Mild intercostal tenderness of the upper le ft and right chest wall replicated on exam. Peripheral Pulses: Normal, Pulses: radial=4/4. Health Maintenance List DTAP,TDAP,TD(1 - Tdap) due on 2006 INFLUENZA(Season Ended) due on 07/18/2019 Data reviewed [facility] ER report, chest x-ray, labs reviewed. ASSESSMENT/PLAN: 1. Pleurisy - ICD9: 511.0, ICD10: R09.1 (primary diagnosis) - Normal ECG, chest x-ray, troponin, d-dimer, CBC, BMP at ER . We will stop naproxen, start prednisone taper. Patient will take wit h food. Patient instructed to call office if no improvement of sympt oms in the next 48 hours. He was advised to go to the ER if he has sync ope, worsening chest pain. He verbalized understanding. - PREDNISONE 10 MG TABLET 2. Hospital discharge follow-up - ICD9: V67.59, ICD10: Z09 - see above RTO as needed. RAFAT Payne on 2019-04-07 CNOV Office Visit (FAMPWS) Normal 04-07-[address] [place] [address] [facility] LUIS E THOMPSON ([id number]) 1985 [facility] Date Time Provider Department ([id number]) 04/07/19 3:20 PM PAOLA DUCKWORTH (CARROL) FAMWS During your visit today, we recorded the following informati on about you: Pulse Respiration Blood pressure Weight 98/minute 20/minute 125/98 100.7 kg Paola Duckworth APRN.CNP 04/07/2019 2:09 PM Signed Chief Complaint Patient presents with: Hospital F/U: [facility] Luis E Thompson is a 33 year old male who presents here today for ER Follow Up. Patient presents office today for emergency room follow-up . Went to [facility] last night with complaints of chest shahram n. Duration was 3 days. Described as a gradual onset that worsened throughout the day. He complained of sharp, left-sided. Worsened by exe rtion, breathing, lying down. Improved with leaning forward while sitting. Tylenol margina lly helped. No shortness of breath other than with large pain r esponse. No nausea, vomiting, diaphoresis, cough, hemoptysis, fever, lighthead edness, palpitations. D-dimer was negative. CBC was normal, BMP was normal. Troponin was negative. EKG was normal. Chest x-ray showed right middle lobe segmental atelectasis versus less likely pneumonia. Patient responded well to Toradol. Was karen gnosed with pleurisy. Discharge with naproxen 500 mg twice a day as needed. At this time, he has only taken one naproxen since his discharge, which di d marginally improve pain. His pain is still in the left side but is more generalized now. Rating 10/10. Blood pressure is normal, heart rate is 98. He states that he is in pain from just walking down the hallway. No syncope. N o fevers. Patient has not been ill lately, no recent travel, no recent surgeries. Nonsmoker. Past medical history, appointments, medications, allergies r eviewed. Previous Medical History PAST MEDICAL HISTORY Diagnosis Date - NEGATIVE MEDICAL HISTORY Previous Surgical History PAST SURGICAL HISTORY Procedure Laterality Date - APPENDECTOMY Family History No family history on file. Patient Allergies ALLERGIES No Known Allergies Current Medications No current outpatient medications on file prior to visit. No current facility-administered medications on file prior t o visit. Social History Social History Socioeconomic History Marital status: Spouse name: Not on file Number of children: Not on file Years of education: Not on file Highest education level: Not on file Social Needs Financial resource strain: Not on file Food insecurity - worry: Not on file Food insecurity - inability: Not on file Transportation needs - medical: Not on file Transportation needs - non-medical: Not on file Occupational History Not on file Tobacco Use Smoking status: Never Smoker Substance and Sexual Activity Alcohol use: No Drug use: No Sexual activity: Not on file Other Topics Concerns: Not on file Social History Narrative Not on file REVIEW OF SYSTEMS: as above ? Reviewed relevant PMHx, PSHx, Social Hx, current medicatio ns and allergies. EXAM: BP 125/98 Pulse 98 Resp 20 Wt 100.7 kg (222 lb) SpO2 97% BMI 33.75 kg/m? General Appearance: Well mika earing, alert, in no acute distress, well-hydrated, well nourished.. Lungs: lungs clear to auscultation. No wheezing, rhonchi, ra les. Patient stating replication of pain with deep inspiration on exam. Heart: RRR without murmur, gallop, or rubs. No ectopy. Extremities: No deformities, edema. Musculoskeletal: Mild intercostal tender ness of the upper left and right chest wall replicated on exam. Peripheral Pulses: Normal, Pulses: radial=4/4. Health Maintenance List DTAP,TDAP,TD(1 - Tdap) due on 2006 INFLUENZA(Season Ended) due on 07/18/2019 Data reviewed [facility] ER report, chest x-ray, labs reviewed. ASSESSMENT/PLAN: 1. Pleurisy - ICD9: 511.0, ICD10: R09.1 (primary diagnosis) - Normal ECG, chest x-ray, troponin, d-dimer, CBC, BMP at ER . We will stop naproxen, start prednisone taper. Patient will take with roger d. Patient instructed to call office if no improvement of s ymptoms in the next 48 hours. He was advised to go to the ER if he has syncope, worsening chest pain. He verbalized understanding. - PREDNISONE 10 MG TABLET 2. Hospital discharge follow-up - ICD9: V67.59, ICD10: Z09 - see above RTO as needed. RAFAT Payne APRN.CNP 04/07/2019 2:03 PM Signed Do not take prednisone with naproxen. Go to ER if you have w orsening chest pain, syncope. Please call office if sym ptoms are not improving in the next 48 hours. Paola Duckworth APRN.CNP Referring Provider: SELF [200] Allergies As of Date: 04/07/2019 (No Known Allergies) Date Reviewed: 04/07/2019 Reviewed by: Chaparrita Zhong - Fully Assessed Reason for Visit: Hospital F/U [57] Cmt: Pleuresy Primary Visit Diagnosis:Pleurisy [R09.1] Other Visit Diagnosis:Hospital discharge follow-up [Z09] Order(s):predniSONE (DELTASONE) 10 mg tabletTake 6 tabs for 3 days, then 4 tabs for 3 days, then 2 tabs for 3 days then 1 tab for 3 day s with food.Disp: 39 tabletRfl: 0 Prescriptions as of 04/07/2019 Sig: NAPROXEN 500 MG TABLET Take 500 mg by mouth twice da* PREDNISONE 10 MG TABLET Take 6 tabs for 3 days, then * Problem List As Of Date 04/07/2019 Noted Resolved Contact with chainsaw as cause of accidental in*INVALID FOR* Laceration of left hand [S61.412A] INVALID FOR* Other instructions from your clinician: Do not take prednisone with naproxen. Go to ER if you have w orsening chest pain, syncope. Please call office if symptoms are not improving in the next 48 hours. Paola Duckworth APRN.CARROL Prescriptions ordered this encounter Disp Refills Start End PREDNISONE 10 MG TABLET 39 t* 0 04/07/2019 04/19/2019 Sig: Take 6 tabs for 3 days, then 4 tabs for 3 days, then 2 tabs for 3 days then 1 tab for 3 days with food. Encounter Status:Closed by PAOLA DUCKWORTH CNP on 04/07/19 Summary Purpose Family History No Family History Records Found Advance Directives No Advanced Directives Records Found Additional Source Comments FOR RECORDS PERTAINING TO PATIENTS WHO ARE OR HAVE BEEN ENROLLED IN A CHEMICAL DEPENDENCY/SUBSTANCE ABUSE PROGRAM, SOME INFORMATION MAY BE OMITTED. This clinical summary was aggregated from multiple sources. Caution should be exercised in using it in the provision of clinical care. This summary normalizes information from multiple sources, and as a consequence, information in this document may materially changethe coding, format and clinical context of patient data. In addition, data may be omittedin some cases. CLINICAL DECISIONS SHOULD BE BASED ON THE PRIMARY CLINICAL RECORDS. [facility] provides no warranty or guarantee of the accuracy or completeness of information in this document. UNRECOGNIZED CONTENT PROVIDED BELOW FOR UNRECOGNIZED SECTION No Status Records Found UNRECOGNIZED CONTENT PROVIDED BELOW FOR UNRECOGNIZED SECTION INFORMATION SOURCE DATE CREATED AUTHOR AUTHOR'S ORGANIZATIO N 06/07/2019 [facility] elizabeth
--- OUTSIDE RECORDS SUMMARY | 2020-08-29 16:23 | XMS RPT_ITS | CCD ---
:1985 External Reference #:[id number] Author Organization [facility] Care Team Providers Name Role Phone Unavailable Unavailable Unavailable Results Result Name Value Range Unit Interpretation Flag Date Location xr chest 2v frontal/lat on 2019-05-29 XR CHEST 2V * * *Final Report* * * Normal 05-29 [facility] FRONTAL/LAT DATE OF EXAM: May 29 2019 10:40AM [facility] WOX [id number] - XR CHEST 2V FRONTAL/LAT / ([id number]) PROCEDURE REASON: Night sweats * * * * Physician Interpretation * * * * EXAMINATION: CHEST RADIOGRAPH (2 VIEW FRONTAL and LATERAL) CLINICAL HISTORY: Night sweats MQ: XC2_5 Comparison: None RESULT: Heart normal size. Bony structures unremarkable. Poor inspir ation producing crowded lung markings.. IMPRESSION: No acute radiographic abnormality. Concrete Rubber: MICHAEL Transcribe Date/Time: May 30 2019 9:52P Dictated by : SHANICE THOMPSON DO This examination was interpreted and the report reviewed and electronically signed by: SHANICE THOMPSON DO on May 30 2019 9:53PM EST [id number] tsh on 2019-05-29 TSH Qn 1.350 0.400-5.500 uU/mL Normal 05-29-2019 [facility] ([id number]) Comment: Performed By: #### CMP, HIV1 2C, CBCDIF, LIPNF, TSH, HBA1C #### [facility] [address] [place], [place] [address] progress on 2019-05 PROGRESS HNO ID: [id number] Normal 05-29-2019 [facility] Author: Izabel Junior (Rt) Tai Meyer [place] ([id number]) Service: ? 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 Author Type: Physician Type: Progress [...] hand as well. Seen last month at [facility] ED for chest pain. Diagnosed with ple [...] tetanus booster was 3 years ago at [place] [facility] when he caug ht left hand with chainsaw. Past medical history, appointments, medications, allergies r cholowed. Previous Medical History PAST MEDICAL HISTORY Diagnosis Date - Obesity (BMI 30.0-34.9) - Pleurisy Previous Surgical History PAST SURGICAL HISTORY Procedure Laterality Date - APPENDECTOMY 2007 [facility] Family History No family history on file. [...] non-medical: Not on file Occupational History Occupation: [employer] Employer: [employer] Tobacco Use Smoking status: [...] Cholesterol [Mass/Vol] 147 <200 mg/dL Normal 019 [facility] ([id number]) Comment: Result Comment: <200 mg/dL, Desirable 200-239 mg/dL, Borderline hi gh >239 mg/dL, High Performed By: #### CMP, HIV1 2C, CBCDIF, LIPNF, TSH, HBA1C #### [facility] [address] [place], [place] [address] Cholesterol in 1.74 <2.54 mg/dL Normal 05-29-2019 [facility] LDL/Cholesterol in HDL [Mass [place] ([id number]) ratio] Comment: Result Comment: Reference: 1. National Cholesterol Educ ation Program ATP III Guideline At-A-Glance Quick Desk Reference: National Heart, Lung, and Blood [place]. National Institutes of Health. 2001: NIH Publication No. 01-3305. 2. An International Atherosc lerosis Society position paper: global recommendations for the management of dyslipidemia: executive summary, Atherosclerosis. 2014: 232(2):410-413. Performed By: #### CMP, HIV1 2C, CBCDIF, LIPNF, TSH, HBA1C #### [facility] [address] [place], [place] [address] Cholesterol.total/Cholesterol in 3.42 <5.10 mg/dL Normal 05-29-2019 [facility] HDL [Mass ratio] Cli josephine [facility] ([id number]) Comment: Performed By: #### CMP, HIV1 2C, CBCDIF, LIPNF, TSH, HBA1C #### [facility] [address] [place], [place] [address] HDL Cholesterol, NF 43 >39 mg/dL Normal 05-29-2019 [facility] ([id number]) Comment: Result Comment: 40-59 mg/dL, Acceptable >59 mg/dL, High: Negative ri sk factor for coronary heart disease <40 mg/dL, Low: Positive ris k factor for coronary heart disease Performed By: #### CMP, HIV1 2C, CBCDIF, LIPNF, TSH, HBA1C #### [facility] [address] [place] [address] LDL Cholesterol, NF 75 <100 mg/dL Normal 05-29-2019 [facility] ([id number]) Comment: Result Comment: <100 mg/dL, Optimal 100-129 mg/dL, Near optimal/ above optimal 130-159 mg/dL, Borderline hi gh 160-189 mg/dL, High >189 mg/dL, Very high Secondary prevention optimal LDL Cholesterol levels are recommended to be < 70 mg/dL Performed By: #### CMP, HIV1 2C, CBCDIF, LIPNF, TSH, HBA1C #### [facility] [address] [place] [address] Non HDL Chol, NF 104 <130 mg/dL Normal 05-29-2019 [facility] ([id number]) Comment: Result Comment: <130 mg/dL, Optimal 130-159 mg/dL, Near optimal/ above optimal 160-189 mg/dL, Borderline hi gh 190-219 mg/dL, High >219 mg/dL, Very high Secondary prevention optimal non HDL Cholesterol levels are recommended to be < 100 mg/dL Performed By: #### CMP, HIV1 2C, CBCDIF, LIPNF, TSH, HBA1C #### [facility] [address] [place] [address] Triglycerides, NF 146 <150 mg/dL Normal 05-29-2019 [facility] ([id number]) Comment: Result Comment: <150 mg/dL, Normal 150-199 mg/dL, Borderline hi gh 200-499 mg/dL, High >499 mg/dL, Very high Performed By: #### CMP, HIV1 2C, CBCDIF, LIPNF, TSH, HBA1C #### [facility] [address] [place] [address] VLDL Cholesterol, NF 29 <30 mg/dL Normal 9 [facility] ([id number]) Comment: Performed By: #### CMP, HIV1 2C, CBCDIF, LIPNF, TSH, HBA1C #### [facility] [address] [place] [address] [id number] ab on 2019-05-29 HIV 12 Ag/Ab Non Reactive Non Reactive Normal 05-29-2019 [facility] ([id number]) Comment: Performed By: #### CMP, HIV1 2C, CBCDIF, LIPNF, TSH, HBA1C #### [facility] [place] [address] HIV Interpretation Negative Normal 05-29-2019 [facility] ([id number]) Comment: Result Comment: No evidence of HIV-1 or HIV-2 infection. Should recent infection be suspected, repeat testing may be considered 2-3 weeks after this draw. HIV Information: [place] Rev. C ode 3701.243(E): This information has [...] HIV1 2C, CBCDIF, LIPNF, TSH, HBA1C #### [facility] [place] [address] HIV-1/2 Antibody Test Not Indicated Normal 05-17 [facility] ([id number]) Comment: Performed By: #### CMP, HIV1 2C, CBCDIF, LIPNF, TSH, HBA1C #### [place] [address] [place] [id number] hemoglobin a1c on 2 HbA1c (Bld) [Mass fraction] 88 mg/dL Normal [facility] ([id number]) Comment: Result Comment: eAG: (Estima dipika average glucose) is a calculated value from HgbA1c and is junior sales representative of the average blood glucose level in the last 2-3 month period. Performed By: #### CMP, HIV1 2C, CBCDIF, LIPNF, TSH, HBA1C ####[facility] [address] [place], [place] [phone] HbA1c (Bld) [Mass fraction] 4.7 4.3-5.6 % Normal [facility] ([id number]) Comment: Result Comment: [place] Karen betes Association guidelines indicate that patients with HgbA1c in the range 5.7-6.4% are at increased risk for development of diabetes, and intervention by lifestyle modification may be beneficial. HgbA1c greater o r equal to 6.5% is considered diagnostic of diabetes. Performed By: #### CMP, HIV1 2C, CBCDIF, LIPNF, TSH, HBA1C ####[facility] [place], [place] [phone] comp metabolic panel on 2019-05-29 Albumin [Mass/Vol] 4.7 3.9-4.9 g/dL Normal 05-29-2019 [facility] ([id number]) Comment: Performed By: #### CMP, HIV1 2C, CBCDIF, LIPNF, TSH, HBA1C #### [facility] [address] [place], [place] [address] ALP [Catalytic activity/Vol] 58 38-113 U/L Normal 0 05-29-2019 [facility] ([id number]) Comment: Performed By: #### CMP, HIV1 2C, CBCDIF, LIPNF, TSH, HBA1C #### [facility] [address] [place], [place] [address] ALT [Catalytic activity/Vol] 21 10-54 U/L Normal 0 05-29-2019 [facility] (61530) Comment: Performed By: #### CMP, HIV1 2C, CBCDIF, LIPNF, TSH, HBA1C #### [facility] [address] [place], [place] [address] Anion gap [Moles/Vol] 9 9-18 mmol/L Normal 05-29-20 19 [facility] (24726) Comment: Performed By: #### CMP, HIV1 2C, CBCDIF, LIPNF, TSH, HBA1C #### [facility] [address] [place], [place] [address] AST [Catalytic activity/Vol] 32 14-40 U/L Normal 0 05-29-2019 [facility] (92950) Comment: Result Comment: Results may be falsely increased due to interference by hemolysis. Suggest reorder a s clinically indicated. Performed By: #### CMP, HIV1 2C, CBCDIF, LIPNF, TSH, HBA1C #### [facility] [address] [place], [place] [address] Bilirubin [Mass/Vol] 0.5 0.2-1.3 mg/dL Normal 9 [facility] (48165) Comment: Performed By: #### CMP, HIV1 2C, CBCDIF, LIPNF, TSH, HBA1C #### [facility] [address] [place], [place] [address] Calcium [Mass/Vol] 9.9 8.5-10.2 mg/dL Normal 05-29-2019 [facility] (59789) Comment: Performed By: #### CMP, HIV1 2C, CBCDIF, LIPNF, TSH, HBA1C #### [facility] [address] [place], [place] [address] Chloride [Moles/Vol] 103 97-105 mmol/L Normal 9 [facility] (60950) Comment: Performed By: #### CMP, HIV1 2C, CBCDIF, LIPNF, TSH, HBA1C #### [facility] [address] [place], [place] [address] CO2 [Moles/Vol] 27 22-30 mmol/L Normal 05-29-2019 [facility] (76534) Comment: Performed By: #### CMP, HIV1 2C, CBCDIF, LIPNF, TSH, HBA1C #### [facility] [address] [place], [place] [id number] Creatinine [Mass/Vol] 0.86 0.73-1.22 mg/dL Normal 05-29-20 19 [facility] ([id number]) Comment: Performed By: #### CMP, HIV1 2C, CBCDIF, LIPNF, TSH, HBA1C #### [facility] [address] [place] [address] eGFR- Amer. >60 Normal 05-29-2019 [facility] ([id number]) Comment: Performed By: #### CMP, HIV1 2C, CBCDIF, LIPNF, TSH, HBA1C #### [facility] [address] [place] [address] GFR/1.73 sq M predicted >60 mL/min/{1.73_m2} Normal 05-29-2019 [facility] among non-blacks [facility] ([id number]) (S/P/Bld) [Vol rate/Area] Comment: Result Comment: eGFR [...] HIV1 2C, CBCDIF, LIPNF, TSH, HBA1C #### [facility] [address] [place] [id number] Glucose [Mass/Vol] 89 74-99 mg/dL Normal 05-29-2019 [facility] (55339) Comment: Result Comment: The [place] Diabetes Association (ADA) provides guidance for cutoff [...] for diagnosis of diabetes. Reference: Standards of [facility] Care in Diabetes 2016, [place] Diabetes Association. Diabetes Care. 2016.39(Suppl 1). Performed By: #### CMP, HIV1 2C, CBCDIF, LIPNF, TSH, HBA1C #### [facility] [address] [place], [place] [address] Potassium [Moles/Vol] 4.4 3.7-5.1 mmol/L Normal 05-29-20 [facility] (21200) Comment: Performed By: #### CMP, HIV1 2C, CBCDIF, LIPNF, TSH, HBA1C #### [facility] [address] [place], [place] [address] Protein [Mass/Vol] 7.3 6.3-8.0 g/dL Normal 05-29-2019 [facility] (75475) Comment: Performed By: #### CMP, HIV1 2C, CBCDIF, LIPNF, TSH, HBA1C #### [facility] [address] [place], [place] [address] Sodium [Moles/Vol] 139 136-144 mmol/L Normal 05-29-2019 [facility] (49315) Comment: Performed By: #### CMP, HIV1 2C, CBCDIF, LIPNF, TSH, HBA1C #### [facility] [address] [place], [place] [address] Urea nitrogen [Mass/Vol] 13 9-24 mg/dL Normal 05-29 [facility] (59651) Comment: Performed By: #### CMP, HIV1 2C, CBCDIF, LIPNF, TSH, HBA1C #### [facility] [address] [place], [place] [address] cnov on 2019-05-29 CNOV Office Visit (FAMPWS) Normal 05-29-20 [facility] LUIS E THOMPSON ([id number]) 1985 M [place] Date Time Provider Department ([id number]) 05/29/19 9:20 AM [facility] YOU[facility], we [...] hand as well. Seen last month at [facility] ED for chest pain . Diagnosed with [...] tetanus booster was 3 years ago at [place] [facility] when he caught left hand with chainsaw. Past medical history, appointments, medications, allergies latonia harding. Previous Medical History PAST MEDICAL HISTORY Diagnosis Date - Obesity (BMI 30.0-34.9) - Pleurisy Previous Surgical History PAST SURGICAL HISTORY Procedure Laterality Date - APPENDECTOMY 2007 [facility] Family History No family history on file. 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 Apply sparingly to area for rash/itching.Disp: 1 TubeRfl: 1 HGB A1C [PZILL0K] Order #: [id number] FUTURE CBC + DIFF [SQCBCDIF] Order #: [id number] FUTURE TSH BLD [SQTSH] Order #: [id number] FUTURE HIV 1 2 COMBO(AG/AB),WITH REFLEX TO DIFFERENTIATION [SQHIV12 ] Order #: [id number] FUTURE XR CHEST 2V FRONTAL/LAT [[id number]] Order #: [id number] FUTURE LIPID PANEL, NONFASTING [SQLIPNF] Order #: [id number] FUTURE Prescriptions as of 05/29/2019 Sig: TRIAMCINOLONE [...] Abs Baso 0.04 <0.11 k/uL Normal 05-29-2019 [facility] ([id number]) Comment: Performed By: #### CMP, HIV1 2C, CBCDIF, LIPNF, TSH, HBA1C #### [facility] [address] [place] [address] Abs [place] 0.52 <0.87 k/uL Normal 05-29-2019 [facility] ([id number]) Comment: Performed By: #### CMP, HIV1 2C, CBCDIF, LIPNF, TSH, HBA1C #### [facility] [address] [place] [address] Abs Neut 4.24 1.45-7.50 k/uL Normal 05-29-2019 [facility] ([id number]) Comment: Performed By: #### CMP, HIV1 2C, CBCDIF, LIPNF, TSH, HBA1C #### [facility] [address] [place] [address] Absolute nRBC <0.01 <0.01 Normal 05-29-2019 [facility] ([id number]) Comment: Performed By: #### CMP, HIV1 2C, CBCDIF, LIPNF, TSH, HBA1C #### [facility] [address] [place] [address] Basophils/100 WBC (Bld) 0.6 % Normal 2018 [facility] ([id number]) Comment: Performed By: #### CMP, HIV1 2C, CBCDIF, LIPNF, TSH, HBA1C #### [facility] [address] [place] [address] DTYPE Auto Diff Normal 05-29-2019 [facility] (75102) Comment: Performed By: #### CMP, HIV1 2C, CBCDIF, LIPNF, TSH, HBA1C #### [facility] [address] [place] [address] Eosinophils (Bld) [#/Vol] 0.07 <0.46 k/uL Normal 05-17 [facility] (72539) Comment: Performed By: #### CMP, HIV1 2C, CBCDIF, LIPNF, TSH, HBA1C #### [facility] [address] [place] [address] Eosinophils/100 WBC (Bld) 1.1 % Normal 05-17 [facility] (46295) Comment: Performed By: #### CMP, HIV1 2C, CBCDIF, LIPNF, TSH, HBA1C #### [facility] [address] [place] [address] Erythrocyte distribution 12.5 11.5-15.0 % Normal 05-29 [facility] width (RBC) [Ratio] [facility] (59632) Comment: Performed By: #### CMP, HIV1 2C, CBCDIF, LIPNF, TSH, HBA1C #### [facility] [address] [place], [place] [address] Hematocrit (Bld) [Volume 48.1 39.0-51.0 % Normal 05-29 [facility] fraction] [facility] ([id number]) Comment: Performed By: #### CMP, HIV1 2C, CBCDIF, LIPNF, TSH, HBA1C #### [facility] [address] [place], [place] [address] Hemoglobin (Bld) 15.7 13.0-17.0 g/dL Normal 05-29-2019 [facility] [Mass/Vol] [place] (91987) Comment: Performed By: #### CMP, HIV1 2C, CBCDIF, LIPNF, TSH, HBA1C #### [facility] [address] [place], [place] [address] Lymphocytes (Bld) [#/Vol] 1.69 1.00-4.00 k/uL Normal 05-17 [facility] (25652) Comment: Performed By: #### CMP, HIV1 2C, CBCDIF, LIPNF, TSH, HBA1C #### [facility] [address] [address] Lymphocytes/100 WBC (Bld) 25.8 % Normal 05-17 [facility] (87011) Comment: Performed By: #### CMP, HIV1 2C, CBCDIF, LIPNF, TSH, HBA1C #### [address] [address] MCH (RBC) [Entitic mass] 29.1 26.0-34.0 pG Normal 05-29 [facility] (89682) Comment: Performed By: #### CMP, HIV1 2C, CBCDIF, LIPNF, TSH, HBA1C #### [facility] [address] [place], [place] [address] MCHC (RBC) [Mass/Vol] 32.6 30.5-36.0 g/dL Normal 05-29-20 [facility] (33503) Comment: Performed By: #### CMP, HIV1 2C, CBCDIF, LIPNF, TSH, HBA1C #### [facility] [address] [place] [address] MCV (RBC) [Entitic vol] 89.1 80.0-100.0 fL Normal 05-29 [facility] (81742) Comment: Performed By: #### CMP, HIV1 2C, CBCDIF, LIPNF, TSH, HBA1C #### [facility] [address] [place], [place] [address] Monocytes/100 WBC (Bld) 7.9 % Normal 2018 [facility] (45599) Comment: Performed By: #### CMP, HIV1 2C, CBCDIF, LIPNF, TSH, HBA1C #### [facility] [address] [place], [place] [address] Neutrophils/100 WBC (Bld) 64.6 % Normal 05-17 [facility] ([id number]) Comment: Performed By: #### CMP, HIV1 2C, CBCDIF, LIPNF, TSH, HBA1C #### [facility] [address] [place], [place] [address] NRBCs 0.0 0 /100 WBC Normal 05-29-2019 [facility] (50171) Comment: Performed By: #### CMP, HIV1 2C, CBCDIF, LIPNF, TSH, HBA1C #### [facility] [address] [place], [place] [address] Platelet mean volume 11.5 9.0-12.7 fL Normal 9 [facility] (Bld) [Entitic vol] [facility] (08958) Comment: Performed By: #### CMP, HIV1 2C, CBCDIF, LIPNF, TSH, HBA1C #### [facility] [address] [place], [place] [address] Platelets (Bld) [#/Vol] 288 150-400 k/uL Normal 2018 [facility] ([id number]) Comment: Performed By: #### CMP, HIV1 2C, CBCDIF, LIPNF, TSH, HBA1C #### [facility] [address] [place], [place] [address] RBC (Bld) [#/Vol] 5.40 4.20-6.00 m/uL Normal 05-29-2019 [facility] ([id number]) Comment: Performed By: #### CMP, HIV1 2C, CBCDIF, LIPNF, TSH, HBA1C #### [facility] [address] [place], [place] [address] WBC (Bld) [#/Vol] 6.56 3.70-11.00 k/uL Normal 05-29-2019 [facility] (58762) Comment: Performed By: #### CMP, HIV1 2C, CBCDIF, LIPNF, TSH, HBA1C #### [facility] [address] [place], [place] [id number] progress on 2019-03 PROGRESS HNO ID: [id number] Normal 04-07-2019 [facility] Author: Paola (Agricultural Economist) Lawrence Nicolas ([id number]) Service: ? Author Type: Nurse Practitioner Type: Progress Notes Filed: 04/07/2019 2:09 PM Note Text: Chief Complaint Patient presents with: Hospital F/U: Felisha [facility] Luis E Thompson is a 33 year old male who presents here today for ER Follow Up. Patient presents office today for emergency room follow-up. Went to [facility] last night with complaints of bj st [...] INFLUENZA(Season Ended) due on 07/18/2019 Data reviewed [facility] ER report, chest x-ray, labs reviewed. ASSESSMENT/PLAN: [...] 2019-04-07 CNOV Office Visit (FAMPWS) Normal 04-07-[address] [place] [address] [facility] LUIS E THOMPSON ([id number]) 1985 [facility] Date Time Provider Department ([id number]) 04/07/19 3:20 PM PAOLA DUCKWORTH (CARROL) FAMWS [...] for emergency room follow-up . Went to [facility] last night with complaints of chest shahram [...] INFLUENZA(Season Ended) due on 07/18/2019 Data reviewed [facility] ER report, chest x-ray, labs reviewed. ASSESSMENT/PLAN: [...] BE BASED ON THE PRIMARY CLINICAL RECORDS. [facility] provides no warranty or guarantee of the accuracy or completeness of information in this document. UNRECOGNIZED CONTENT PROVIDED BELOW FOR UNRECOGNIZED SECTION No Status Records Found UNRECOGNIZED CONTENT PROVIDED BELOW FOR UNRECOGNIZED SECTION INFORMATION SOURCE DATE CREATED AUTHOR AUTHOR'S ORGANIZATIO N 06/07/2019 [facility] elizabeth
== END 2020-04-08 05:31 | disposition home or self-care (01) ==
LOC: ED 05:28
PROVIDERS: Emergency Provider Emergency Medicine
DX: K40.90 Unilateral inguinal hernia, without obstruction or gangrene, not specified as recurrent (principal)
CPT/HCPCS: 96374; 99282; A4216

== ENCOUNTER 2020-04-20 05:44 | Day surgery (SDC) | payer MEDICAID, SELFPAY ==
[2020-04-13 14:11] VITALS: BMI 34.9
--- NOTE | 2020-04-14 08:23 | HP_ITS ---
Intake Vital Signs 04/13/20 BMI 34.9 04/13/20 Height 5 ft 8 in 04/13/20 Weight: 235 lb 4 oz 04/13/20 BMI 35.7 04/13/20 BP 136/89 H 04/13/20 Blood Pressure Location Rt brachial 04/13/20 Position Sitting 04/13/20 Respiration 20 H 04/13/20 Pulse 98 04/13/20 Temp 98.4 F 04/13/20 Temp Source Temporal 04/13/20 Pulse Oximetry (%) 97 Intake Visit Reasons: INCARCERATED INGUINAL HERNIA F/U ER [facility] 04/08 Chief Complaint: left inguinal pain Customer Retention Representative Required: No Is patient in pain?: Yes (left groin ) Pain scale (1-10): 7 Allergies No Known Allergies Allergy (Verified 04/13/20 14:11) Medications Acetaminophen [Tylenol] 650 mg PO Q6H PRN 04/08/20 [History Confirmed 04/13/20] [facility] Medical History Left inguinal hernia (Acute) Low back pain (Acute) Surgical History History of appendectomy (Acute) Family History Father No problems noted. Social History (Updated 04/14/20 @ 08:[address] Imer More MD) Smoking Status: Never smoker HPI HPI Surgical H&P: Yes HPI: LUIS E THOMPSON, is a 34 M who presents to the office today for Evaluation of a painful lump in his left groin. Patient was recently at the [facility] emergency department on 04/08/2020. He stated he had a bulge and pain in his left groin. This was subsequently reduced by the ER physician after he was given some Dilaudid for pain. Patient states that the bulge comes back when he stands. And the discomfort is pretty much constant now he is not having any problems with bowel or bladder habits. ROS General General: Yes weight change; no appetite, fatigue, colon cancer, breast cancer or weakness HEENT HEENT: No difficulty swallowing, eye injury, eye surgery, swollen glands or hoarseness Endo Endocrine: No thyroid disease, diabetes mellitus, thyroid cancer, Hair loss, heat intolerance or cold intolerance Musc Musculoskeletal: Yes back problems; no arthritis, rheumatoid arthritis, gout or joint pain Cardio Cardiovascular: No murmur, pacemaker, heart disease, atrial fibrillation, high blood pressure, heart attack, heart stent, palpitations, shortness of breat with exertion or chest pain Psych Psychiatric: No depression, anxiety or hearing voices Resp Respiratory: No shortness of breath, No sleep apnea, No cough, No COPD, No asthma, No emphysema, No wheezing Gastro Gastrointestinal: Yes abdominal pain, No nausea or vomiting, No diarrhea, No constipation, No blood in stool, No acid reflux, No hemorrhoids, No ulcers, No gallbladder problem, No black,tarry stools Lamine Hematologic: No blood thinners, No blood disorders, No bleeding, No anemia, No blood clots Neuro Neurologic: No weakness Exam Const General: no acute distress, well developed, well hydrated Orientation: oriented to person, oriented to place, oriented to time [facility] Head: normocephalic, atraumatic Ears: external ears normal Mouth: moist mucous membranes Eyes Sclera: sclerae normal Pupils: normal by confrontation Neck Neck: no lymphadenopathy noted Neck mass: No Thyroid: thyroid normal, symmetrical Chest Chest palpation & inspection: normal inspection of the chest Resp Effort & Inspection: normal respiratory effort Auscultation: clear to auscultation bilaterally Percussion: percussion normal Cardio Rate: regular rate Rhythm: regular rhythm Heart Sounds: no murmurs GI Palpation: soft, no hepatosplenomegaly, no masses, tender Rectal Exam: other Other: Patient has a reducible left inguinal hernia that goes all the way down into his testicle. It is slightly tender to touch. Rectal exam deferred. Extrem General: normal to inspection, no clubbing, cyanosis or edema Assessment & Plan Problems 1. Left inguinal hernia K40.90 Plan My plan is to perform an Open left inguinal hernia repair. The planned surgical procedure was discussed extensively with the patient. The risks, benefits, anticipated outcomes and possible complication were mentioned. The patient understands that all hernia repair surgery has a chance of recurrence and/or chronic post-operative pain. My staff has also explained the procedure in understandable terms and the patient was given the option to take printed material concerning the planned procedure. The patient had the opportunity to ask questions concerning the planned procedure. The patient freely consents to the planned procedure. Orders Orders: CORONAVIRUS 19, ELIZABETH 04/19/20 Z11.59 Coding Level of Care Code Off vis,new,level 4 Diagnoses Left inguinal hernia K40.90 04/14/20 0823 <Electronically signed by Imer sears MD> Date _ Imer More MD I have re-examined the patient. There are no clinical changes since date of exam.
[2020-04-20] VITALS (9 sets, daily range): BP systolic 122–139; BP diastolic 69–89; PULSE 85–97; RESP 16; TEMP 36.9–37.1; O2SAT 95–99; BMI 35.5
[2020-04-20] MEDS: Lactated Ringers 1,000 ML 100 ML IV ×2 (06:12→09:35)
--- NOTE | 2020-04-20 07:07 | PCM.DC.HER ---
Discharge Diet: Light diet - advance as tolerated Discharge Activity: Return to Normal Activity, May Drive - when you are no longer taking narcotic pain medications., May Shower - with the bandage in place 1-2 days after surgery. Lifting Restrictions: 20 pounds for 8 weeks. Additional Activity Instructions:: Climbing stairs is fine, walking is encouraged. Sitting in bed may be uncomfortable. Sitting up using your lateral muscles (sitting up sideways) is usually more comfortable. Do not drive, work heavy equipment of sign legal documents for 24 hours. If your hernia repair was an ingunial repair, you may have scrotal swelling, an ice pack and/or athletic support can provide more comfort. Pain medications may cause nausea, you should typically eat light foods as you take your pain medications. Pain medications may also cause constipation. If you have difficulty with this, discuss with your doctor. Call your doctor if your incision/area has: Continuous Slow Oozing, Sudden Increased Bleeding, Increased Pain/ Swelling, Increased Redness, Foul Smelling Discharge Call your doctor if you observe: Fever of 101 or Higher Suture Line Care: Avoid Pulling/Pushing, Avoid Pinching/Bending Additional Dressing/Incision Instructions:: Leave the operative bandage on for 2-3 days. When you remove the bandage, leave the steri-strips on place until your follow up appointment or they fall off. Allergies/Adverse Reactions: Allergies No Known Allergies Allergy (Verified 04/20/20 05:48) Medications to take at Discharge Acetaminophen [Tylenol] 650 mg PO Q6H PRN 04/08/20 Oxycodone HCl/Acetaminophen [Percocet 5/325] 1 - 2 tablet PO Q4H PRN PRN 6 Days #30 tablet 04/20/20 The following prescriptions were given: Oxycodone HCl/Acetaminophen [Percocet 5/325] 1 - 2 tablet PO Q4H PRN PRN 6 Days #30 tablet PRN Reason: Pain Transmission Status: Sent to [id number] Primary Care Physician: Care Physician,No Primary [Primary Care Provider] - Test Results: Test results from this visit will be discussed in further detail at your follow-up appointment, if applicable. Please Follow Up With: Imer More MD - [phone] When: Plan to have a follow up appointment in 7 days. Call to schedule.
--- NOTE | 2020-04-20 07:08 | OP.PCM_ITS ---
Problem List (1) Left inguinal hernia Status: Acute Report of Operation Date of Procedure: 04/20/20 Pre-Operative Diagnosis: Left inguinal hernia Post-Operative Diagnosis: Same Surgery/Procedure Performed:: Open left inguinal herniorrhaphy with mesh Type of Anesthesia:: General Estimated Blood Loss (mL): < 25cc Fluids Replaced: 900 CC lr Description of Procedure: Patient was brought into the operating room. Placed in the supine position. Under excellent general anesthetic the left inguinal area was sterilely prepped and draped in usual fashion. Local was injected. Incision was made. Dissection was carried down to the superficial inferior epigastric vessels which were tied off with 0 Vicryl tie I dissected down further to the left inguinal external bleak fascia placed a wheat [place] retractor into the wound open the external bleak fascia a lot of scarring significant amount of scarring to the point where I was unable to identify the ilioinguinal nerve whatsoever I dissected superiorly and inferiorly after I had placed a Ericka drain underneath the cord and vessel structures. Patient had a indirect inguinal hernia that traveled all the way down into this scrotum I was able to dissect this free after dissecting it free I took down the cremasteric fibers I was able to place this hernia back into the indirect opening and placed a large Bard mesh plug into this area. I sutured that plug and with 2 sutures of 0 Prolene. Patient's cord and vessel structures appeared good he had a lot of fatty tissue along this area but I did not want to dissect it free it was not a cord lipoma and I would have injured the cord and vessel structures had I done that. Onlay mesh was then sutured to the pubic tubercle with 0 Prolene sutures it was traveled along the ilioinguinal ligament laterally and the transversalis fascia medially cord vessel structures came through the campos ring and I sutured the 2 sutures together I had enough room to get my entire index finger into this so that easily things could travel both in and out without too much difficulty and the blood supply was intact. Once this was completed I then injected local. External bleak fascia was then brought together with 2-0 Vicryl. Subcu was brought together with 2-0 Vicryl. Deep dermal stitches of 3-0 Vicryl and then a running 4-0 Monocryl. Dermabond was applied sterile dressings were applied and the patient tolerated the procedure well. - Admit VTE Documentation VTE Present on Admission: No VTE Mechan Device Prophylaxis: SCD's VTE Pharm Prophylaxis ordered?: No Reason prophylaxis not ordered:: Treatment Not Indicated [id number]: [id number] Prp i/abhinav init reduc >5 yr
[2020-04-20] MEDS: Cefazolin 2 GM in 0.9% Normal Saline 100 ML IV (07:30)
[2020-04-20] MEDS: Bupivacaine Mpf 0.5% 30 ML VIAL (08:20)
--- OUTSIDE RECORDS SUMMARY | 2020-09-03 07:31 | XMS RPT_ITS | CCD ---
:1985 External Reference #:[id number] Author Organization [facility] Care Team Providers Name Role Phone Unavailable Unavailable Unavailable Results Result Name Value Range Unit Interpretation Flag Date Location xr chest 2v frontal/lat on 2019-05-29 XR CHEST 2V * * *Final Report* * * Normal 05-29 [facility] FRONTAL/LAT DATE OF EXAM: May 29 2019 10:40AM [place] WOX [id number] - XR CHEST 2V FRONTAL/LAT / ([id number]) PROCEDURE REASON: Night sweats * * * * Physician Interpretation * * * * EXAMINATION: CHEST RADIOGRAPH (2 VIEW FRONTAL and LATERAL) CLINICAL HISTORY: Night sweats MQ: XC2_5 Comparison: None RESULT: Heart normal size. Bony structures unremarkable. Poor inspir ation producing crowded lung markings.. IMPRESSION: No acute radiographic abnormality. Link Trainer: MICHAEL Transcribe Date/Time: May 30 2019 9:52P Dictated by : SHANICE THOMPSON DO This examination was interpreted and the report reviewed and electronically signed by: SHANICE THOMPSON DO on May 30 2019 9:53PM EST [id number] tsh on 2019-05-29 TSH Qn 1.350 0.400-5.500 uU/mL Normal 05-29-2019 [facility] ([id number]) Comment: Performed By: #### CMP, HIV1 2C, CBCDIF, LIPNF, TSH, HBA1C #### [facility] [address] [place], [place] [address] progress on 2019-05 PROGRESS HNO ID: [id number] Normal 05-29-2019 [facility] Author: Izabel Junior (Rt) Tai Meyer [place] ([id number]) Service: ? Author Type: Embosser Operator Type: Progress Notes Filed: 05/29/2019 10:40 AM [...] 29, 2019 10:34 AM PROGRESS HNO ID: [id number] Normal 05-29-2019 [facility] Author: Margie Gutierrez () Hector Nicolas ([id number]) Service: ? Author Type: Physician Type: Progress [...] hand as well. Seen last month at [facility] ED for chest pain. Diagnosed with [...] tetanus booster was 3 years ago at [place] [facility] when he caug ht left hand with chainsaw. Past medical history, appointments, medications, allergies r cholowed. Previous Medical History PAST MEDICAL HISTORY Diagnosis Date - Obesity (BMI 30.0-34.9) - Pleurisy Previous Surgical History PAST SURGICAL HISTORY Procedure Laterality Date - APPENDECTOMY 2007 [facility] Family History No family history on [...] non-medical: Not on file Occupational History Occupation: [employer] Employer: [employer] Tobacco Use Smoking status: [...] Cholesterol [Mass/Vol] 147 <200 mg/dL Normal 019 [facility] (00146) Comment: Result Comment: <200 mg/dL, Desirable 200-239 mg/dL, Borderline hi gh >239 mg/dL, High Performed By: #### CMP, HIV1 2C, CBCDIF, LIPNF, TSH, HBA1C #### [facility] [address] [place], [place] [address] Cholesterol in 1.74 <2.54 mg/dL Normal 05-29-2019 [facility] LDL/Cholesterol in HDL [Mass [place] ([address]) ratio] Comment: Result Comment: Reference: 1. National Cholesterol Educ ation Program ATP III Guideline At-A-Glance Quick Desk Reference: National Heart, Lung, and Blood [place]. National Institutes of Health. 2001: NIH Publication No. 01-3305. 2. An International Atherosc lerosis Society position paper: global recommendations for the management of dyslipidemia: executive summary, Atherosclerosis. 2014: 232(2):410-413. Performed By: #### CMP, HIV1 2C, CBCDIF, LIPNF, TSH, HBA1C #### [facility] [address] [place], [place] [address] Cholesterol.total/Cholesterol in 3.42 <5.10 mg/dL Normal 05-29-2019 [place] HDL [Mass ratio] Cli josephine [place] ([address]) Comment: Performed By: #### CMP, HIV1 2C, CBCDIF, LIPNF, TSH, HBA1C #### [facility] [address] [place], [place] [address] HDL Cholesterol, NF 43 >39 mg/dL Normal 05-29-2019 [facility] (23298) Comment: Result Comment: 40-59 mg/dL, Acceptable >59 mg/dL, High: Negative ri sk factor for coronary heart disease <40 mg/dL, Low: Positive ris k factor for coronary heart disease Performed By: #### CMP, HIV1 2C, CBCDIF, LIPNF, TSH, HBA1C #### [facility] [address] [place] [address] LDL Cholesterol, NF 75 <100 mg/dL Normal 05-29-2019 [facility] (80858) Comment: Result Comment: <100 mg/dL, Optimal 100-129 mg/dL, Near optimal/ above optimal 130-159 mg/dL, Borderline hi gh 160-189 mg/dL, High >189 mg/dL, Very high Secondary prevention optimal LDL Cholesterol levels are recommended to be < 70 mg/dL Performed By: #### CMP, HIV1 2C, CBCDIF, LIPNF, TSH, HBA1C #### [facility] [address] [place] [address] Non HDL Chol, NF 104 <130 mg/dL Normal 05-29-2019 [facility] (34759) Comment: Result Comment: <130 mg/dL, Optimal 130-159 mg/dL, Near optimal/ above optimal 160-189 mg/dL, Borderline hi gh 190-219 mg/dL, High >219 mg/dL, Very high Secondary prevention optimal non HDL Cholesterol levels are recommended to be < 100 mg/dL Performed By: #### CMP, HIV1 2C, CBCDIF, LIPNF, TSH, HBA1C #### [facility] [address] [place] [address] Triglycerides, NF 146 <150 mg/dL Normal 05-29-[address] [facility] (73859) Comment: Result Comment: <150 mg/dL, Normal 150-199 mg/dL, Borderline hi gh 200-499 mg/dL, High >499 mg/dL, Very high Performed By: #### CMP, HIV1 2C, CBCDIF, LIPNF, TSH, HBA1C #### [facility] [address] [place] [address] VLDL Cholesterol, NF 29 <30 mg/dL Normal 9 [facility] (57594) Comment: Performed By: #### CMP, HIV1 2C, CBCDIF, LIPNF, TSH, HBA1C #### [facility] [address] [place] [address] [id number] ab on 2019-05-29 HIV 12 Ag/Ab Non Reactive Non Reactive Normal 05-29-2019 [facility] (77744) Comment: Performed By: #### CMP, HIV1 2C, CBCDIF, LIPNF, TSH, HBA1C #### [facility] [place] [address] HIV Interpretation Negative Normal 05-29-2019 [facility] (96591) Comment: Result Comment: No evidence of HIV-1 or HIV-2 infection. Should recent infection be suspected, repeat testing may be considered 2-3 weeks after this draw. HIV Information: [place] Rev. C ode 3701.243(E): This information has [...] HIV1 2C, CBCDIF, LIPNF, TSH, HBA1C #### [facility] [place] [address] HIV-1/2 Antibody Test Not Indicated Normal 05-17 [facility] (15281) Comment: Performed By: #### CMP, HIV1 2C, CBCDIF, LIPNF, TSH, HBA1C #### [place] [address] [place] [id number] hemoglobin a1c on 2 HbA1c (Bld) [Mass fraction] 88 mg/dL Normal [facility] (50073) Comment: Result Comment: eAG: (Estima dipika average glucose) is a calculated value from HgbA1c and is guest service representative of the average blood glucose level in the last 2-3 month period. Performed By: #### CMP, HIV1 2C, CBCDIF, LIPNF, TSH, HBA1C ####[facility] [address] [place], [place] [phone] HbA1c (Bld) [Mass fraction] 4.7 4.3-5.6 % Normal [facility] (13641) Comment: Result Comment: [place] Karen betes Association guidelines indicate that patients with HgbA1c in the range 5.7-6.4% are at increased risk for development of diabetes, and intervention by lifestyle modification may be beneficial. HgbA1c greater o r equal to 6.5% is considered diagnostic of diabetes. Performed By: #### CMP, HIV1 2C, CBCDIF, LIPNF, TSH, HBA1C ####[facility] [place], [place] [phone] comp metabolic panel on 2019-05-29 Albumin [Mass/Vol] 4.7 3.9-4.9 g/dL Normal 05-29-2019 [facility] (25800) Comment: Performed By: #### CMP, HIV1 2C, CBCDIF, LIPNF, TSH, HBA1C #### [facility] [address] [place], [place] [address] ALP [Catalytic activity/Vol] 58 38-113 U/L Normal 0 05-29-2019 [facility] (33712) Comment: Performed By: #### CMP, HIV1 2C, CBCDIF, LIPNF, TSH, HBA1C #### [facility] [address] [place], [place] [address] ALT [Catalytic activity/Vol] 21 10-54 U/L Normal 0 05-29-2019 [facility] (31285) Comment: Performed By: #### CMP, HIV1 2C, CBCDIF, LIPNF, TSH, HBA1C #### [facility] [address] [place], [place] [address] Anion gap [Moles/Vol] 9 9-18 mmol/L Normal 05-29-20 19 [facility] (90768) Comment: Performed By: #### CMP, HIV1 2C, CBCDIF, LIPNF, TSH, HBA1C #### [facility] [address], [place] [address] AST [Catalytic activity/Vol] 32 14-40 U/L Normal 0 05-29-2019 [facility] (14695) Comment: Result Comment: Results may be falsely increased due to interference by hemolysis. Suggest reorder a s clinically indicated. Performed By: #### CMP, HIV1 2C, CBCDIF, LIPNF, TSH, HBA1C #### [facility] [address] [place], [place] [address] Bilirubin [Mass/Vol] 0.5 0.2-1.3 mg/dL Normal 9 [facility] (57340) Comment: Performed By: #### CMP, HIV1 2C, CBCDIF, LIPNF, TSH, HBA1C #### [facility] [address] [place], [place] [address] Calcium [Mass/Vol] 9.9 8.5-10.2 mg/dL Normal 05-29-2019 [facility] (50031) Comment: Performed By: #### CMP, HIV1 2C, CBCDIF, LIPNF, TSH, HBA1C #### [facility] [address] [place], [place] [address] Chloride [Moles/Vol] 103 97-105 mmol/L Normal 9 [facility] (81963) Comment: Performed By: #### CMP, HIV1 2C, CBCDIF, LIPNF, TSH, HBA1C #### [facility] [address] [place], [place] [address] CO2 [Moles/Vol] 27 22-30 mmol/L Normal 05-29-2019 [facility] (96830) Comment: Performed By: #### CMP, HIV1 2C, CBCDIF, LIPNF, TSH, HBA1C #### [facility] [address] [place], [place] [id number] Creatinine [Mass/Vol] 0.86 0.73-1.22 mg/dL Normal 05-29-20 19 [facility] (11864) Comment: Performed By: #### CMP, HIV1 2C, CBCDIF, LIPNF, TSH, HBA1C #### [facility] [address] [place] [address] eGFR- Amer. >60 Normal 05-29-2019 [facility] (56917) Comment: Performed By: #### CMP, HIV1 2C, CBCDIF, LIPNF, TSH, HBA1C #### [facility] [address] [place] [address] GFR/1.73 sq M predicted >60 mL/min/{1.73_m2} Normal 05-29-2019 [facility] among non-blacks [facility] (06267) (S/P/Bld) [Vol rate/Area] Comment: Result Comment: eGFR [...] HIV1 2C, CBCDIF, LIPNF, TSH, HBA1C #### [facility] [address] [place] [id number] Glucose [Mass/Vol] 89 74-99 mg/dL Normal 05-29-2019 [facility] (11855) Comment: Result Comment: The [place] Diabetes Association (ADA) provides guidance for cutoff [...] for diagnosis of diabetes. Reference: Standards of [facility] in Diabetes 2016, [place] Diabetes Association. Diabetes Care. 2016.39(Suppl 1). Performed By: #### CMP, HIV1 2C, CBCDIF, LIPNF, TSH, HBA1C #### [facility] [address] [place], [place] [address] Potassium [Moles/Vol] 4.4 3.7-5.1 mmol/L Normal 05-29-20 [facility] (82620) Comment: Performed By: #### CMP, HIV1 2C, CBCDIF, LIPNF, TSH, HBA1C #### [facility] [address] [place], [place] [address] Protein [Mass/Vol] 7.3 6.3-8.0 g/dL Normal 05-29-2019 [facility] (52477) Comment: Performed By: #### CMP, HIV1 2C, CBCDIF, LIPNF, TSH, HBA1C #### [facility] [address] [place], [place] [address] Sodium [Moles/Vol] 139 136-144 mmol/L Normal 05-29-2019 [facility] (72699) Comment: Performed By: #### CMP, HIV1 2C, CBCDIF, LIPNF, TSH, HBA1C #### [facility] [address] [place], [place] [address] Urea nitrogen [Mass/Vol] 13 9-24 mg/dL Normal 05-29 [facility] (26330) Comment: Performed By: #### CMP, HIV1 2C, CBCDIF, LIPNF, TSH, HBA1C #### [facility] [address] [place], [place] [address] cnov on 2019-05-29 CNOV Office Visit (FAMPWS) Normal 05-29-20 [place] [facility] LUIS E THOMPSON ([id number]) 1985 M [place] Date Time Provider Department ([address]) 05/29/19 9:20 AM M[facility]IE YOUNG[facility] During your visit today, we recorded the [...] hand as well. Seen last month at [facility] ED for chest pain . Diagnosed [...] tetanus booster was 3 years ago at [place] [facility] when he caught left hand with chainsaw. Past medical history, appointments, medications, allergies latonia harding. 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 Apply sparingly to area for rash/itching.Disp: 1 TubeRfl: 1 HGB A1C [[id number]] Order #: [id number] FUTURE CBC + DIFF [SQCBCDIF] Order #: [id number] FUTURE TSH BLD [SQTSH] Order #: [id number] FUTURE HIV 1 2 COMBO(AG/AB),WITH REFLEX TO DIFFERENTIATION [SQHIV12 ] Order #: [id number] FUTURE XR CHEST 2V FRONTAL/LAT [[id number]] Order #: [id number] FUTURE LIPID PANEL, NONFASTING [SQLIPNF] Order #: [id number] FUTURE Prescriptions as of 05/29/2019 Sig: TRIAMCINOLONE [...] Abs Baso 0.04 <0.11 k/uL Normal 05-29-2019 [facility] (49083) Comment: Performed By: #### CMP, HIV1 2C, CBCDIF, LIPNF, TSH, HBA1C #### [facility] [address] [place] [address] Abs [place] 0.52 <0.87 k/uL Normal 05-29-2019 [facility] (03975) Comment: Performed By: #### CMP, HIV1 2C, CBCDIF, LIPNF, TSH, HBA1C #### [facility] [address] [place] [address] Abs Neut 4.24 1.45-7.50 k/uL Normal 05-29-2019 [facility] (41786) Comment: Performed By: #### CMP, HIV1 2C, CBCDIF, LIPNF, TSH, HBA1C #### [facility] [address] [place] [address] Absolute nRBC <0.01 <0.01 Normal 05-29-2019 [facility] (12242) Comment: Performed By: #### CMP, HIV1 2C, CBCDIF, LIPNF, TSH, HBA1C #### [facility] [address] [place] [address] Basophils/100 WBC (Bld) 0.6 % Normal 2018 [facility] (70416) Comment: Performed By: #### CMP, HIV1 2C, CBCDIF, LIPNF, TSH, HBA1C #### [facility] [address] [place] [address] DTYPE Auto Diff Normal 05-29-2019 [facility] (45435) Comment: Performed By: #### CMP, HIV1 2C, CBCDIF, LIPNF, TSH, HBA1C #### [facility] [address] [place] [address] Eosinophils (Bld) [#/Vol] 0.07 <0.46 k/uL Normal 05-17 [facility] (85609) Comment: Performed By: #### CMP, HIV1 2C, CBCDIF, LIPNF, TSH, HBA1C #### [facility] [address] [place] [address] Eosinophils/100 WBC (Bld) 1.1 % Normal 05-17 [facility] (67346) Comment: Performed By: #### CMP, HIV1 2C, CBCDIF, LIPNF, TSH, HBA1C #### [facility] [address] [place] [address] Erythrocyte distribution 12.5 11.5-15.0 % Normal 05-29 [facility] width (RBC) [Ratio] [place] (30061) Comment: Performed By: #### CMP, HIV1 2C, CBCDIF, LIPNF, TSH, HBA1C #### [facility] [address] [place], [place] [address] Hematocrit (Bld) [Volume 48.1 39.0-51.0 % Normal 05-29 [facility] fraction] [place] ([address]893) Comment: Performed By: #### CMP, HIV1 2C, CBCDIF, LIPNF, TSH, HBA1C #### [facility] [address] [place], [place] [address] Hemoglobin (Bld) 15.7 13.0-17.0 g/dL Normal 05-29-2019 [facility] [Mass/Vol] [place] (48890) Comment: Performed By: #### CMP, HIV1 2C, CBCDIF, LIPNF, TSH, HBA1C #### [facility] [address] [place], [place] [address] Lymphocytes (Bld) [#/Vol] 1.69 1.00-4.00 k/uL Normal 05-17 [facility] (58658) Comment: Performed By: #### CMP, HIV1 2C, CBCDIF, LIPNF, TSH, HBA1C #### [facility] [address] [address] Lymphocytes/100 WBC (Bld) 25.8 % Normal 05-17 [facility] (93438) Comment: Performed By: #### CMP, HIV1 2C, CBCDIF, LIPNF, TSH, HBA1C #### [address] [address] MCH (RBC) [Entitic mass] 29.1 26.0-34.0 pG Normal 05-29 [facility] (05719) Comment: Performed By: #### CMP, HIV1 2C, CBCDIF, LIPNF, TSH, HBA1C #### [facility] [address] [place], [place] [address] MCHC (RBC) [Mass/Vol] 32.6 30.5-36.0 g/dL Normal 05-29-20 [facility] (80652) Comment: Performed By: #### CMP, HIV1 2C, CBCDIF, LIPNF, TSH, HBA1C #### [facility] [address] [place] [address] MCV (RBC) [Entitic vol] 89.1 80.0-100.0 fL Normal 05-29 [facility] (33991) Comment: Performed By: #### CMP, HIV1 2C, CBCDIF, LIPNF, TSH, HBA1C #### [facility] [address] [place], [place] [address] Monocytes/100 WBC (Bld) 7.9 % Normal 2018 [facility] (77387) Comment: Performed By: #### CMP, HIV1 2C, CBCDIF, LIPNF, TSH, HBA1C #### [facility] [address] [place], [place] [address] Neutrophils/100 WBC (Bld) 64.6 % Normal 05-17 [facility] (70179) Comment: Performed By: #### CMP, HIV1 2C, CBCDIF, LIPNF, TSH, HBA1C #### [facility] [address] [place], [place] [address] NRBCs 0.0 0 /100 WBC Normal 05-29-2019 [facility] (09201) Comment: Performed By: #### CMP, HIV1 2C, CBCDIF, LIPNF, TSH, HBA1C #### [facility] [address] [place], [place] [id number] Platelet mean volume 11.5 9.0-12.7 fL Normal 9 [facility] (Bld) [Entitic vol] [place] (41877) Comment: Performed By: #### CMP, HIV1 2C, CBCDIF, LIPNF, TSH, HBA1C #### [facility] [address] [place], [place] [address] Platelets (Bld) [#/Vol] 288 150-400 k/uL Normal 2018 [facility] (35994) Comment: Performed By: #### CMP, HIV1 2C, CBCDIF, LIPNF, TSH, HBA1C #### [facility] [address] [place], [place] [address] RBC (Bld) [#/Vol] 5.40 4.20-6.00 m/uL Normal 05-29-[address] [facility] (50208) Comment: Performed By: #### CMP, HIV1 2C, CBCDIF, LIPNF, TSH, HBA1C #### [facility] [address] [place], [place] [address] WBC (Bld) [#/Vol] 6.56 3.70-11.00 k/uL Normal 05-29-2019 [facility] (99726) Comment: Performed By: #### CMP, HIV1 2C, CBCDIF, LIPNF, TSH, HBA1C #### [facility] [address] [place], [place] [id number] progress on 2019-03 PROGRESS HNO ID: [id number] Normal 04-07-2019 [facility] Author: Paola (Cardiac Monitor) Lawrence Nicolas ([id number]) Service: ? Author Type: Nurse Practitioner Type: Progress Notes Filed: 04/07/2019 2:09 PM Note Text: Chief Complaint Patient presents with: Hospital F/U: Felisha [facility] Luis E Thompson is a 33 year old male who presents here today for ER Follow Up. Patient presents office today for emergency room follow-up. Went to [facility] last night with complaints of bj [...] INFLUENZA(Season Ended) due on 07/18/2019 Data reviewed [facility] ER report, chest x-ray, labs reviewed. [...] 2019-04-07 CNOV Office Visit (FAMPWS) Normal 04-07-[address] [place] [address] [facility] LUIS E THOMPSON ([id number]) 1985 [facility] Date Time Provider Department (26763) 04/07/19 3:20 PM PAOLA DUCKWORTH (CARROL) FAMWS [...] for emergency room follow-up . Went to [facility] last night with complaints of chest [...] INFLUENZA(Season Ended) due on 07/18/2019 Data reviewed [facility] ER report, chest x-ray, labs reviewed. [...] BE BASED ON THE PRIMARY CLINICAL RECORDS. [facility] provides no warranty or guarantee of the accuracy or completeness of information in this document. UNRECOGNIZED CONTENT PROVIDED BELOW FOR UNRECOGNIZED SECTION No Status Records Found UNRECOGNIZED CONTENT PROVIDED BELOW FOR UNRECOGNIZED SECTION INFORMATION SOURCE DATE CREATED AUTHOR AUTHOR'S ORGANIZATIO N 06/07/2019 [facility] elizabeth
== END 2020-04-20 11:37 | disposition home or self-care (01) ==
LOC: SDC 05:45 → AC 05:46
PROVIDERS: Referring Provider Surgery; Visit Provider Surgery
PROC: (CPT 49505; principal; 2020-04-20 07:15)
DX: K40.90 Unilateral inguinal hernia, without obstruction or gangrene, not specified as recurrent (principal); Z11.59 Encounter for screening for other viral diseases
CPT/HCPCS: 49505; 87635; G2023; J7120; C1781; J2405; U0003

== ENCOUNTER 2020-09-02 22:05 | Emergency (ER) | payer MEDICAID, SELFPAY ==
[2020-04-20 06:00] VITALS: BMI 35.5
[2020-09-02 22:06] VITALS: BP 144/94; PULSE 84; RESP 16; TEMP 36.3; BMI 38.8
--- NOTE | 2020-09-02 22:19 | ED.VIS.UPPEX ---
History of Present Illness Chief Complaint: Laceration Informant: Patient Occurred: Today Mechanism/Context: Injury - accidentally hit w/ hammer while working on a car; occured about 12 hrs [employer] Onset: Today Context: Sudden Onset Timing: Continuous Quality of Pain: - - sore Location: left small finger Current Severity: Mild Maximum Severity: Moderate Worsened by: palpation Relieved by: leaving alone Associated Symptoms: - - associated laceration from it splitting open. Negative for: Parasthesia, Weakness, Loss of Funtion Narrative: Patient has been putting skin glue on his laceration trying to keep it closed, however it is not staying closed, he states he cleaned it really well and has been putting peroxide on it repetitively all day. [id number]. Work-related, patient does not want to claim Workmen's Compensation. Tetanus Immunization: <5 years Past Medical History - Allergies and Home Meds Allergies/Adverse Reactions: Allergies No Known Allergies Allergy (Verified 09/02/20 22:06) Primary Care Physician: Care Physician,No Primary [Primary Care Provider] - Past Medical History: None Smoking Status: Never smoker Review of Systems General: Denies: Chills, Fever, Sweats Musculoskeletal: Reports: Extremity Pain. Denies: Back pain Skin: Reports: Wounds. Denies: Rash Neurological: Denies: Headache, Weakness, Numbness Physical Exam Vital Signs/Narrative: Vital Signs Temp Pulse Resp BP 09/02/20 22:06 97.4 F L 84 16 144/94 H General: Well nourished, Well developed, - - NAD Head: Normocephalic, Atraumatic Extremeties: Mild tenderness at laceration in the left small finger, no bony tenderness. No subungual hematoma. Full range of motion, all flexor tendons and extensor function intact. Skin: Normal color, No rash, Trauma - 3.5 cm total laceration at the radial aspect of the left small finger, most of it is closed with adhesive, however there is a portion in the central part of it near the DIPJ that is open without skin glue contaminating the subcutaneous tissues, which are exposed and herniating when the patient bends Neurological: Alert, Oriented x3, Cranial nerves II-XII grossly intact, Normal Strength, Normal Sensation, Normal Gait Diagnostic/Tx/Re-eval - Medical Decision Making As the laceration was cleansed after applying let to it, all of the superglue that the patient placed over the wound peeled off and the entire wound dehisced open. I cleansed it thoroughly, irrigated it, sterile prep and drape, and repaired the wound which took 8 sutures to oppose it correctly. Discussed signs and symptoms of infection and reasons to return, but I think the risk is low enough that he does not require antibiotics. Discussed with patient keeping wound clean and dressed with bacitracin at least for the next couple days, and to avoid contaminating the wound with grease/dirt. Procedures - Lacerations Left little finger Length: 3.5 cm Depth: Sub Q Shape: Curved Prep: Sterile Conditions, Chlorhexadine Laceration repair: Debrideded - Superglue adhesive removed from surface of finger, Irrigated, Lidocaine with epi - Topically, Local - 1 cc 0.5% bupivacaine with epinephrine, Skin sutures, Wound explored - No adhesive seen inside wound Number of Sutures/[place]: 8 Suture Information: Ethilon, Simple, 5-0 ED Disposition - Plan for ED Patient: Disposition: Home or Assisted Living Diagnosis: Laceration of left little finger w/o foreign body w/o damage to nail Instructions: ED Laceration Hand Referrals: Diomedes Hughes MD [STAFF PHYSICIAN] - 10-14 Days suture removal (or ER/urgent care for wound reevaluation/suture removal)
[2020-09-02] MEDS: Lidocaine/Epi/Tetracaine 50 ML 1 APPLIC TOPICAL (22:28)
[2020-09-02 23:36] VITALS: RESP 18
== END 2020-09-02 23:37 | disposition home or self-care (01) ==
PROVIDERS: Emergency Provider Emergency Medicine
DX: S61.217A Laceration without foreign body of left little finger without damage to nail, initial encounter (principal); W27.0XXA Contact with workbench tool, initial encounter; Y93.89 Activity, other specified; Y92.009 Unspecified place in unspecified non-institutional (private) residence as the place of occurrence of the external cause; Y99.8 Other external cause status
CPT/HCPCS: 12002; 99281; 99284

== ENCOUNTER 2020-12-15 17:24 | Emergency (ER) | payer MEDICAID, SELFPAY ==
[2020-12-15 17:25] VITALS: BP 152/92; PULSE 94; RESP 16; TEMP 36.2; O2SAT 99; BMI 37.7
[2020-12-15] MEDS: Fluorescein 1 MG STRIP 1 STRIP LEFT EYE (18:12)
[2020-12-15] MEDS: Tetracaine 0.5% Ophthalmic Bottle 1 DRP LEFT EYE (18:12)
[2020-12-15 18:24] VITALS: BP 145/78; PULSE 80; RESP 18; TEMP 36.9; O2SAT 98
--- NOTE | 2020-12-15 18:24 | ED.DEP ---
ED Disposition - Plan for ED Patient: Instructions: ED Corneal Foreign Body, Removed Referrals: Andres Spring MD [STAFF PHYSICIAN] -
--- NOTE | 2020-12-15 18:26 | ED.VISSUMM ---
- ER Visit Summary Date of Service: 12/15/20 Chief Complaint: Foreign body left eye History of Present Illness: The patient is a 35 M presenting with foreign body left eye. Patient states he was grinding metal at home yesterday without safety glasses. He felt something go into his left eye. He denies vision changes. Does not wear contacts. He went to urgent care and they attempted to remove the foreign body without success. He was sent to the ED for evaluation. Physical Examination: Vitals are stable. Patient is afebrile. Alert no acute distress. HEENT exam PERRL, EOMI. Small foreign body visualized at 6:00 Neck is supple. Lungs are clear and equal bilaterally. Heart is regular rate and rhythm. Extremities are unremarkable. Skin is warm and dry. Remainder of exam is unremarkable. Emergency Department Course and Treatment: Tetracaine was instilled into the left eye. Foreign body was partially removed with cotton tip swab. There is a very small residual foreign body. Discussed with ophthalmology and patient will be seen in the morning. He was given bacitracin ophthalmic ointment. Advised return to ED for worsening complaints. Disposition: Discharge home Impression: Foreign body left eye This note was generated with [employer] dictation software. It may contain incorrect words, spelling, and punctuation that were not noted in review of the chart prior to signing ED Disposition - Plan for ED Patient: Instructions: ED Corneal Foreign Body, Removed Referrals: Andres Spring MD [STAFF PHYSICIAN] -
== END 2020-12-15 18:42 | disposition home or self-care (01) ==
LOC: ED 18:37
PROVIDERS: Emergency Provider Emergency Medicine
DX: T15.92XA Foreign body on external eye, part unspecified, left eye, initial encounter (principal)
CPT/HCPCS: 65205; 99283

== ENCOUNTER 2021-02-16 16:26 | Emergency (ER) | payer MEDICAID, SELFPAY ==
[2021-02-16 16:27] VITALS: BP 110/65; PULSE 80; RESP 18; O2SAT 98
[2021-02-16 16:29] VITALS: BP 115/72; PULSE 100; RESP 18; TEMP 37.3; O2SAT 98; BMI 36.9
--- NOTE | 2021-02-16 16:36 | ED.DCSUM_ITS ---
- ER Visit Summary Date of Service: 02/16/21 Chief Complaint: [Allergic reaction] History of Present Illness: The patient is a 35 M [presents to the emergency department with complaint of allergic reaction that he has been dealing with for 5 months. Patient states that this episode started just after noon. Patient's been breaking out in hives almost daily. They have not been able to ascertain the cause of his symptoms. Patient has not seen an merchandising director. Currently he complains of red raised rash that is itchy and some mild facial swelling which she has not had before. Patient denies eating any unusual foods. Denies any new soaps or detergents. Patient otherwise has no medical history. Is not had any recent illness. He denies any new medications.] Physical Examination: [HEENT-PERRLA, EOMI. Cranial nerves II through XII grossly intact. TMs clear. Mucous membranes moist. No adenopathy. No angioedema of the lips or tongue noted. No angioedema noted of the oropharynx. Cardiovascular-regular rate and rhythm without murmur or ectopy Lungs-clear to auscultation, chest wall stable without crepitus or subcu emphysema Abdomen-normoactive bowel sounds, soft, nontender, no rebound or rigidity, no peritoneal signs. Skin exam-patient does have diffuse urticaria involving the face and head as well as the extremities and trunk. Red raised rash that is blanchable. Extremities-intact ?4, normal range of motion, normal pulses, atraumatic] Test Results: [] Emergency Department Course and Treatment: [IV line established. Patient was given Solu-Medrol 125 mg IV as well as Benadryl 50 mg IV and Pepcid 20 mg IV.] Patient felt markedly improved after treatment. His urticaria improved. Treatment Plan: [Patient will be referred to merchandising director for allergy testing. Patient will be started on prednisone for 5 days.] Disposition: [Discharged home in stable condition] Impression: [Allergic reaction/urticaria-etiology uncertain] This note was generated with [employer] dictation software. It may contain incorrect words, spelling, and punctuation that were not noted in review of the chart prior to signing ED Disposition - Plan for ED Patient: Referrals: Care Physician,No Primary [Primary Care Provider] -
[2021-02-16] MEDS: DiphenhydrAMINE 50 MG/ML Syringe IV (16:39)
[2021-02-16] MEDS: MethylPREDNISolone 125 MG/2 ML Vial IV (16:39)
[2021-02-16] MEDS: Famotidine 200 MG/20 ML MDV 20 MG in 0.9% Normal Saline (Pres. free 8 ML 300 MG IV (16:51)
--- NOTE | 2021-02-16 17:48 | ED.DEP ---
ED Disposition - Plan for ED Patient: Instructions: ED Hives (Adult), ED General Allergic Reactions Prescriptions: Prednisone [Deltasone] 20 mg PO BID #10 tablet Transmission Status: Pending to [id number] Referrals: Care Physician,No Primary [Primary Care Provider] - Bhavin Ochoa MD [STAFF PHYSICIAN] - Luther Cunha MD [COURTESY STAFF PHYSICIAN] - 3-5 Days
[2021-02-16 18:41] VITALS: BP 117/72; PULSE 80; RESP 22; O2SAT 95
== END 2021-02-16 18:46 | disposition home or self-care (01) ==
LOC: ED 17:07
PROVIDERS: Emergency Provider Emergency Medicine
DX: L50.0 Allergic urticaria (principal)
CPT/HCPCS: 96374; 96375; 99283; A4216; J3490

== ENCOUNTER 2021-06-26 17:21 | Emergency (ER) | payer MEDICAID, SELFPAY ==
[2021-06-26 17:21] VITALS: BP 136/81; PULSE 76; RESP 16; TEMP 36.1; O2SAT 98; BMI 38.1
[2021-06-26] MEDS: HYDROcodone Bitartrate/Apap 5/325 Tablet PO (18:19)
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
[2021-06-26 19:09] VITALS: BP 122/86; PULSE 76; RESP 16; O2SAT 100
== END 2021-06-26 19:29 | disposition home or self-care (01) ==
PROVIDERS: Emergency Provider Emergency Medicine; PCP Family Medicine
DX: T23.202A Burn of second degree of left hand, unspecified site, initial encounter (principal); T22.112A Burn of first degree of left forearm, initial encounter; T20.17XA Burn of first degree of neck, initial encounter; T31.0 Burns involving less than 10% of body surface
CPT/HCPCS: 99283; A4216

== ENCOUNTER 2021-07-04 10:06 | Emergency (ER) | payer MEDICAID, SELFPAY ==
[2021-07-04 10:07] VITALS: BP 134/72; PULSE 85; RESP 14; TEMP 36.9; O2SAT 98; BMI 36.8
--- NOTE | 2021-07-04 10:33 | EKG12_ITS ---
Test Reason : Blood Pressure : / mmHG Vent. Rate : 079 BPM Atrial Rate : 079 BPM P-R Int : 142 ms QRS Dur : 112 ms QT Int : 398 ms P-R-T Axes : 047 019 052 degrees QTc Int : 456 ms Normal sinus rhythm Normal ECG Confirmed by RABIA DOW, ROMY ([id number]), film and video editor JOSEPH ORTIZ ([id number]) on 07/09/2021 8:33:55 AM Referred By: CAROLYN Confirmed By:ROMY CAMARILLO MD
--- NOTE | 2021-07-04 10:35 | ED.VIS.CHEST ---
HPI History of Present Illness Chief Complaint: Chest Pain Informant: patient Narrative Narrative: 35-year-old male presents to the emergency room for the evaluation of chest pain. Patient states that he has had intermittent chest pain for a long time. He reports that it is sharp and stabbing at the lower anterior left chest. Does not radiate into the back. He states that last about 5 to 10 minutes and then resolves and can be gone for days. He is not diaphoretic with it. He is able to eat and drink with the pain there. He notes that his father had early heart disease under the age of 55. Patient denies any change in exercise tolerance. CVD Risk Factors: Positive for Family History 1' </=55 [facility] Medical History (Updated 07/04/21 @ 11:[address] Imer Ryan DO) Left inguinal hernia Low back pain Home Medications cetirizine 10 mg PO DAILY 02/16/21 [History Last Taken Unknown] pantoprazole [Protonix] 40 mg PO DAILY #14 tab 07/04/21 [Rx Last Taken Unknown] Allergy/AdvReac Type Severity Reaction Status Date / Time No Known Allergies Allergy Verified 07/04/21 10:09 Family History Father No problems noted. Surgical History History of appendectomy Social History (Updated 07/04/21 @ 10:[address] Imer Ryan DO) Smoking Status: Never smoker substance use type: does not use ROS ROS ED Constitutional Constitutional ED: Denies chills or weight loss Eyes Eyes: Denies change in vision or diplopia ENT ENT ED: Denies ear pain, rhinorrhea or sore throat Cardiovascular Cardiovascular: Reports chest pain; Denies orthopnea, palpitations or racing heartbeat Respiratory/Chest Respiratory/Chest: Denies cough, dyspnea or orthopnea Gastrointestinal Gastrointestinal: Denies abdominal pain, diarrhea, nausea or vomiting Genitourinary Genitourinary ED: Denies dysuria, hematuria or urinary frequency Musculoskeletal Musculoskeletal: Denies arthralgias or myalgias Integumentary Denies abscess or rash Neurologic Neurologic: Denies headache(s) or weakness Psychiatric Psychiatric: Denies anxiety, depression, suicidal ideation or suicidal thoughts Endocrine Endocrinology: Denies polydipsia, polyphagia or polyuria Allergic/Immunologic Allergic/Immunologic ED: Denies mouth swelling, tongue swelling or urticaria EXAM Physical Exam Const Vital Signs: 07/04/21 10:07 Temperature 98.4 F Temperature Source Temporal Pulse Rate 85 Respiratory Rate 14 Blood Pressure 134/72 H Blood Pressure Mean 92 Pulse Ox 98 Oxygen Delivery Method Room Air Positive well nourished and well developed General Appearance ED: well developed HEENT Reports normocephalic, head/scalp atraumatic and moist mucous membranes Eyes PERRL and EOMs intact bilaterally Neck no lymphadenopathy, supple and no JVD Resp normal respiratory effort and clear to auscultation bilaterally Cardio regular rate, regular rhythm and no murmurs GI normal to inspection, nondistended, normoactive bowel sounds and non-tender Palpation: soft Back/Spine no CVA tenderness and normal ROM Extremity normal to inspection General Extremety ED: Negative for edema General Extremity: Negative for edema Neuro oriented x3 and CN's II-XII intact bilaterally Sensorium / Orientation: alert Motor Exam: strength 5/5 throughout Psych mental status grossly normal Mood & Affect: Negative for depressed or tearful Skin no rashes or lesions noted Skin Narrative: Burn right hand and wrist Heart Score History: Slightly/Non-Suspicious ECG: Normal Age: </= 45 years Risk Factors: 1 or 2 Risk Factors Troponin: </= Normal Limit Score: 1 MDM MDM MDM Narrative Medical decision making narrative: Patient's heart score is 1. Troponin IV. CBC BMP normal. EKG shows a normal sinus rhythm with ventricular rate of 79. My interpretation of chest x-ray is no acute process. At this point I think the patient can be discharged home. If he wishes he can start a daily Pepcid. If symptoms continue would recommend following up with primary care Lab Data Attestation: I reviewed the patient's lab results. Labs: Laboratory Results - last 24 hr 07/04/21 07/04/21 11:15 11:15 WBC 5.5 RBC 5.19 Hgb 15.3 Hct 45.0 MCV 86.7 MCH 29.5 MCHC 34.0 RDW Std Deviation 39.4 RDW Coeff of Juan M 12.5 Plt Count 325 MPV 10.3 Immature Gran % (Auto) 0.200 Neut % (Auto) 64.0 Lymph % (Auto) 24.6 [place] % (Auto) 9.6 Eos % (Auto) 1.4 Baso % (Auto) 0.2 Absolute Neuts (auto) 3.5 Absolute Lymphs (auto) 1.36 Nucleated RBC % 0 Sodium 139 Potassium 3.8 Chloride 104 Carbon Dioxide 30.0 Anion Gap 5 BUN 18 Creatinine 1.09 Estim Creat Clear Calc 93.26 Est GFR (MDRD) Af Amer 100 Est GFR (MDRD) Non-Af 82 BUN/Creatinine Ratio 16.5 Glucose 79 Calcium 9.1 Troponin I High Sens 4 EKG Initial EKG: Attestation: I personally reviewed and interpreted this EKG as follows: Comments: Normal sinus rhythm with a ventricular rate of 79 bpm. Discharge Plan Triage Chief Complaint: Chest Pain ED Provider: Imer Ryan Dx/Rx/DC Orders Clinical Impression: Chest pain Instructions: ED Chest Pain, Noncardiac Prescriptions: New pantoprazole [Protonix] 40 mg tablet,delayed release (DR/EC) 40 mg PO DAILY Qty: 14 RF: 0 No Action cetirizine 10 MG tablet 10 mg PO DAILY RF: 0 Primary Care Provider: Valeriano Young Referrals: Valeriano Young MD [Primary Care Provider] - 1-2 Weeks Disposition Disposition: Home, Self Care
--- NOTE | 2021-07-04 11:15 | RAD_ITS ---
STUDY: X-RAY CHEST REASON FOR EXAM: Male, 35 years old. Chest pain TECHNIQUE: Single AP portable view of the chest. COMPARISON: Comparison is made with prior study dated 04/07/2008. FINDINGS: EKG electrodes are seen Stable mild elevation of the right hemidiaphragm. The lungs are clear. There is no demonstrated pleural abnormality. Normal size heart. Normal mediastinum and clarissa. Normal visualized pulmonary arteries. Normal visualized aortic arch and descending thoracic aorta. Normal visualized thoracic spine. Normal visualized ribs, clavicles, and shoulders. There is no demonstrated abnormality of the visualized soft tissue structures of the upper abdomen. RAD/Chest 1 View (Portable) IMPRESSION: Normal x-ray examination of the chest. Electronically Signed: Jonel Bowser MD at 12:12 EDT , Service support ,
[2021-07-04 11:23] LABS: Absolute Lymphocyte Count 1.36 X10^3/uL (0.83-4.51); Absolute Neutrophil Count 3.5 X10^3/uL (2.0-7.7); Basophil# 0.01 X10^3/uL; Basophil% 0.2 % (0-1); Eosinophil# 0.08 X10^3/uL; Eosinophils% 1.4 % (0-5); Hemoglobin 15.3 g/dL (13.0-16.5); Lymphocyte # 1.36 X10^3/ul (0.83-4.51); Lymphocyte % 24.6 % (19-41); Mean Corpuscular Hgb 29.5 pg (27.0-32.0); Mean Corpuscular Volume 86.7 fL (80-94); Mean Platelet Vol. 10.3 fl (6.2-12.0); Monocyte# 0.53 X10^3/uL; Monocyte% 9.6 % (0-10); NRBC Flagged by Analyzer 0 % (0-5); Neutrophil # 3.53 X10^3/uL (2.7-7.7); Platelet Count 325 K/mm3 (150-450); RBC Distribution Width CV 12.5 % (11.6-14.6); RBC Distribution Width SD 39.4 fl (35.1-43.9); Red Blood Count 5.19 M/mm3 (4.6-6.2); White Blood Count 5.5 K/mm3 (4.4-11.0)
[2021-07-04 11:47] LABS: Anion Gap 5 (5-15); BUN 18 mg/dL (7-18); BUN/Creat Ratio 16.5 RATIO (10-20); Calcium,Total 9.1 mg/dL (8.5-10.1); Chloride 104 mmol/L (98-107); Creatinine, Serum 1.09 mg/dL (0.70-1.30); EST Glomerular Filtration Rate 82 mL/min (>60); Est Glom Filt Rate - Afr Amer 100 mL/min (>60); Estimated Creatinine Clearance 93.26 ml/min; Glucose 79 mg/dL (74-106); Potassium 3.8 mmol/L (3.5-5.1); Sodium Level 139 mmol/L (136-145); Troponin-I HS 4 pg/mL (3.0-78.0)
[2021-07-04 12:17] VITALS: BP 112/64; PULSE 80; RESP 17; O2SAT 98
== END 2021-07-04 12:19 | disposition home or self-care (01) ==
PROVIDERS: Emergency Provider Emergency Medicine; PCP Family Medicine
DX: R07.9 Chest pain, unspecified (principal); Z79.899 Other long term (current) drug therapy
CPT/HCPCS: 71045; 80048; 84484; 85025; 93005; 99285; A4216

== ENCOUNTER 2023-06-11 15:08 | Emergency (ER) | payer MEDICAID, SELFPAY ==
[2023-06-11 15:09] VITALS: BP 144/84; PULSE 117; RESP 18; TEMP 36.7; O2SAT 97; BMI 35.6
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
[2023-06-11] MEDS: Penicillin Vk 250 MG Tablet 500 MG PO (18:24)
[2023-06-11] MEDS: HYDROcodone Bitartrate/Apap 5/325 Tablet PO (18:24)
== END 2023-06-11 18:26 | disposition home or self-care (01) ==
PROVIDERS: Emergency Provider Emergency Medicine; PCP Family Medicine; Visit Provider Emergency Medicine
DX: K04.7 Periapical abscess without sinus (principal); K02.9 Dental caries, unspecified
CPT/HCPCS: 99283